=== PATIENT | male | born 1945 | race Caucasian/White ===

== ENCOUNTER → 2024-06-06 | Outpatient (CLI) | payer MEDICARE, OTHER, SELFPAY ==
[2024-06-06 12:41] LABS: Absolute Lymphocyte Count 1.31 X10^3/uL (0.83-4.51); Absolute Neutrophil Count 6.4 X10^3/uL (2.0-7.7); Basophil# 0.06 X10^3/uL; Basophil% 0.7 % (0-1); Eosinophil# 0.24 X10^3/uL; Eosinophils% 2.7 % (0-5); Erythrocyte Sedimentation Rate 12 mm/hr (0-20); Hematocrit 44.1 % (40-54); Hemoglobin 14.6 g/dL (13.0-16.5); Lymphocyte # 1.31 X10^3/ul (0.83-4.51); Lymphocyte % 14.9 % (19-41); Mean Corp Hgb Conc 33.1 g/dL (32-36); Mean Corpuscular Hgb 32.4 pg (27.0-32.0); Mean Platelet Vol. 11.7 fl (6.2-12.0); Monocyte# 0.75 X10^3/uL; Monocyte% 8.5 % (0-10); NRBC Flagged by Analyzer 0 % (0-5); Neutrophil # 6.39 X10^3/uL (2.7-7.7); Neutrophil % 72.5 % (47-70); Platelet Count 239 K/mm3 (150-450); RBC Distribution Width CV 13.4 % (11.6-14.6); RBC Distribution Width SD 48.7 fl (35.1-43.9); White Blood Count 8.8 K/mm3 (4.4-11.0)
[2024-06-06 13:08] LABS: AST(SGOT) 16 U/L (15-37); Alanine Aminotransfer ALT/SGPT 15 U/L (16-61); Albumin, Serum 3.5 g/dL (3.2-5.0); Alkaline Phosphatase 90 U/L (45-117); Anion Gap 8 (5-15); BUN 22 mg/dL (7-18); BUN/Creat Ratio 22.5 RATIO (10-20); CRP < 2.90 mg/L (0.0-3.0); Chloride 108 mmol/L (98-107); Creatinine, Serum 0.98 mg/dL (0.70-1.30); EST Glomerular Filtration Rate 78 mL/min (>60); Est Glom Filt Rate - Afr Amer 95 mL/min (>60); Globulin 3.6 g/dL (2.2-4.2); Glucose 111 mg/dL (74-106); Potassium 4.4 mmol/L (3.5-5.1); Protein, Total 7.1 g/dL (6.4-8.2); Rheumatoid Factor < 10.0 IU/mL (<15); Sodium Level 138 mmol/L (136-145)
[2024-06-06 13:39] LABS: Hepatitis B Surface Antibody Reactive; Hepatitis B Surface Antigen Non-Reactive (Nonreactive); Hepatitis C Antibody Non-Reactive (Nonreactive)
[2024-06-07 12:10] LABS: ANTINUCLEAR ANTIBODIES DIRECT Negative (Negative)
[2024-06-07 14:10] LABS: CCP IgG Antibodies 6 units (0-19)
== END | disposition home or self-care (01) ==
LOC: MTLAB 09:59
PROVIDERS: Referring Provider Internal Medicine Rheumatology; Visit Provider Internal Medicine Rheumatology
DX: M06.4 Inflammatory polyarthropathy (principal); Z79.899 Other long term (current) drug therapy
CPT/HCPCS: 36415; 80053; 85025; 85652; 86038; 86140; 86200; 86431; 86706; 86803; 87340

== ENCOUNTER → 2024-08-24 | Outpatient (CLI) | payer MEDICARE, OTHER, SELFPAY ==
[2024-08-24 17:41] LABS: Absolute Lymphocyte Count 1.59 X10^3/uL (0.83-4.51); Absolute Neutrophil Count 6.2 X10^3/uL (2.0-7.7); Basophil# 0.05 X10^3/uL; Basophil% 0.6 % (0-1); Eosinophil# 0.15 X10^3/uL; Eosinophils% 1.7 % (0-5); Hematocrit 40.9 % (40-54); Hemoglobin 13.3 g/dL (13.0-16.5); Lymphocyte # 1.59 X10^3/ul (0.83-4.51); Lymphocyte % 18.3 % (19-41); Mean Corp Hgb Conc 32.5 g/dL (32-36); Mean Corpuscular Hgb 32.2 pg (27.0-32.0); Monocyte# 0.71 X10^3/uL; Monocyte% 8.2 % (0-10); NRBC Flagged by Analyzer 0 % (0-5); Neutrophil # 6.16 X10^3/uL (2.7-7.7); Neutrophil % 70.7 % (47-70); Platelet Count 243 K/mm3 (150-450); RBC Distribution Width CV 14.1 % (11.6-14.6); RBC Distribution Width SD 51.4 fl (35.1-43.9); Red Blood Count 4.13 M/mm3 (4.6-6.2); White Blood Count 8.7 K/mm3 (4.4-11.0)
[2024-08-24 18:23] LABS: AST(SGOT) 20 U/L (15-37); Alanine Aminotransfer ALT/SGPT 18 U/L (16-61); Albumin, Serum 3.6 g/dL (3.2-5.0); Alkaline Phosphatase 89 U/L (45-117); Anion Gap 6 (5-15); BUN 26 mg/dL (7-18); BUN/Creat Ratio 25.7 RATIO (10-20); Calcium,Total 8.5 mg/dL (8.5-10.1); Chloride 107 mmol/L (98-107); Creatinine, Serum 1.01 mg/dL (0.70-1.30); EST Glomerular Filtration Rate 75 mL/min (>60); Est Glom Filt Rate - Afr Amer 91 mL/min (>60); Globulin 3.5 g/dL (2.2-4.2); Glucose 110 mg/dL (74-106); Potassium 4.2 mmol/L (3.5-5.1); Protein, Total 7.1 g/dL (6.4-8.2); Sodium Level 139 mmol/L (136-145)
== END | disposition home or self-care (01) ==
LOC: MTLAB 14:47
PROVIDERS: Referring Provider Internal Medicine Rheumatology; Visit Provider Internal Medicine Rheumatology
DX: M06.4 Inflammatory polyarthropathy (principal); Z79.899 Other long term (current) drug therapy
CPT/HCPCS: 36415; 80053; 85025

== ENCOUNTER → 2024-11-07 | Outpatient (CLI) | payer MEDICARE, OTHER, SELFPAY ==
[2024-11-07 11:04] LABS: Absolute Lymphocyte Count 1.41 X10^3/uL (0.83-4.51); Absolute Neutrophil Count 4.5 X10^3/uL (2.0-7.7); Basophil# 0.04 X10^3/uL; Basophil% 0.6 % (0-1); Eosinophil# 0.27 X10^3/uL; Eosinophils% 3.9 % (0-5); Hematocrit 41.4 % (40-54); Hemoglobin 13.8 g/dL (13.0-16.5); Lymphocyte # 1.41 X10^3/ul (0.83-4.51); Lymphocyte % 20.3 % (19-41); Mean Corp Hgb Conc 33.3 g/dL (32-36); Mean Corpuscular Hgb 33.7 pg (27.0-32.0); Mean Platelet Vol. 11.7 fl (6.2-12.0); Monocyte# 0.68 X10^3/uL; Monocyte% 9.8 % (0-10); NRBC Flagged by Analyzer 0 % (0-5); Neutrophil # 4.51 X10^3/uL (2.7-7.7); Platelet Count 219 K/mm3 (150-450); RBC Distribution Width CV 13.7 % (11.6-14.6); RBC Distribution Width SD 50.6 fl (35.1-43.9); White Blood Count 6.9 K/mm3 (4.4-11.0)
[2024-11-07 11:31] LABS: ALB/GLOB Ratio 1.5 RATIO (0.9-2.4); AST(SGOT) 26 U/L (<=37); Alanine Aminotransfer ALT/SGPT 10 U/L (<=46); Albumin, Serum 3.9 g/dL (3.4-4.8); Alkaline Phosphatase 86 U/L (40-129); Anion Gap 11 (5-15); BUN 22 mg/dL (4-19); BUN/Creat Ratio 20.9 RATIO (10-20); Calcium,Total 8.7 mg/dL (7.6-11.0); Carbon Dioxide 20.6 mmol/L (21.0-32.0); Chloride 108 mmol/L (98-108); Creatinine, Serum 1.07 mg/dL (0.70-1.20); EST Glomerular Filtration Rate 70 (>60); Globulin 2.6 g/dL (2.2-4.2); Glucose 104 mg/dL (70-99); Potassium 4.3 mmol/L (3.3-5.1); Protein, Total 6.5 g/dL (5.9-8.4); Sodium Level 140 mmol/L (133-145); Total Bilirubin 0.42 mg/dL (0.00-1.30)
== END | disposition home or self-care (01) ==
LOC: MTLAB 09:25
PROVIDERS: Referring Provider Internal Medicine Rheumatology; Visit Provider Internal Medicine Rheumatology
DX: M06.4 Inflammatory polyarthropathy (principal); Z79.899 Other long term (current) drug therapy
CPT/HCPCS: 36415; 80053; 85025

== ENCOUNTER → 2025-01-13 | Outpatient (CLI) | payer MEDICARE, OTHER, SELFPAY ==
--- OUTSIDE RECORDS SUMMARY | 2025-01-13 08:57 | XMS RPT_ITS | CCD ---
Author Organization [facility] Care Team Providers Care Routing Machine Operator Name Role Phone WILFREDO HANSON, ANETA Primary Care Physician [phone] Unavailable Primary Care Provider Pily CRANE APRN-BENJAMIN HERNANDEZ Attending Cathy VILLALOBOS MD, [facility] Primary Care Fran Sheehan MD, DR PRESTON Attending Fran Curran MD, [facility] Primary Care Fran Sheehan MD, DR PRESTON Attending Fran Curran MD, [facility] Primary Care Fran Curran MD, ANETA Villavicencio Attending Fran Curran MD, [facility] Primary Care Fran [facility], [facility] Primary Care Physician [phone] ITALO HANSON, DR PRESTON Attending Fran Curran MD, [facility] Primary Care Fran Curran MD, [facility] Care Fran Sheehan MD, DR PRESTON Attending Fran Curran MD, Dr. Quan Primary Care Provider Dr. Jocelyn Beltre MD Attending Provider Dr. Jocelyn Beltre MD Referring Provider Jocelyn Beltre Attending Unavailable Jocelyn Beltre Referring Unavailable Aneta Villalobos Primary Care Unavailable Jocelyn Beltre Attending Unavailable Jocelyn Beltre Referring [facility]available [facility] Unavailable Jocelyn Beltre Attending Unavailable Jocelyn Beltre Referring Unavailable [facility]fredo [facility] Colleen VILLALOBOS MD, ANETA Villavicencio Attending Fran Curran MD, [facility] Care Fran leal Allergies Allergy Classification Reported Allergen(s) Allergy Type Date of Onset Reaction(s) Facility (8 sources) Droperidol; Translations: [droperidol] Drug Allergy [facility] Work Phone: (8 sources) Droperidol / fentaNYL; Translations: [droperidol-fent anyl] Drug Allergy irregular heart beat [facility] Work Phone: (8 sources) fentaNYL; Translations: [fentanyl] Drug Allergy [facility] Work Phone: Comment on above: pt does not know wha t his reaction was (6 sources) Isosorbide; Translations: [isosorbide] Drug Allergy unbearable headache [facility] Work Phone: Medications Current Medications Medication Drug Class(es) Dates Sig (Normalized) Sig (Original) aspirin 81 mg delayed release oral tablet (4 sources) Platelet Aggregation Inhibitor, Nonsteroidal Anti-inflammatory Drug Start: 01-10-2022 aspirin 81 mg oral delayed release tablet Dose : 81 mg = 1 tab(s), Oral, qDay, # 30 tab(s), 6 Refill(s), Pharmacy: [facility], 188, cm, 01/10/22 10:51:00 EDT, Height Start Date: 01/10/22 Status: Ordered atorvastatin 10 mg oral tablet (5 sources) HMG-CoA Reductase Inhibitor Start: 12-18-2023 take 1 tablet by mouth once daily atorvastatin 10 mg oral tablet 1 tab(s), Oral, qDay, # 90 tab(s), 0 Refill(s), Pharmacy: [facility], 188, cm, 12/14/23 9:21:00 EDT, Height, kg, 12/14/23 9:21:00 EDT, Dosing Weight Start Date: 12/18/23 Status: Ordered Start: 01-20-2022 atorvastatin 4 0 mg oral tablet Dose : 40 mg = 1 tab(s), Oral, qDay, # 30 tab(s), 6 Refill(s), Pharmacy: [facility], 188, cm, 01/20/22 8:21:00 EDT, Height Start Date: 01/20/22 Status: Ordered clopidogrel 75 mg oral tablet (1 source) [id number] Platelet Inhibitor Start: 05-21-2024 Plavix 75 mg oral tablet Dose : 75 mg = 1 tab(s), Oral, qDay, # 30 tab(s), 6 Refill(s), Pharmacy: [facility], 188, cm, 12/22/23 9:33:00 EDT, Height, kg, 12/22/23 9:33:00 EDT, Dosing Weight Start Date: 12/22/23 Status: Ordered 24 hr isosorbide mononitrate 30 mg extended release oral tablet (1 source) Nitrate Vasodilator Start: 01-10-2022 isosorbide mononitrate 30 mg oral tablet, extended release Dose : 30 mg = 1 tab(s), Oral, qAM, # 30 tab(s), 6 Refill(s), Pharmacy: [place] [id number], 188, cm, 01/10/22 10:51:00 EDT, Height Start Date: 01/10/22 Status: Ordered losartan potassium 25 mg oral tablet (1 source) Angiotensin 2 Receptor Dona Start: 12-22-2023 losartan 25 mg oral tablet Dose : 25 mg = 1 tab(s), Oral, qDay, # 30 tab(s), 6 Refill(s), Pharmacy: [facility], 188, cm, 12/22/23 9:33:00 EDT, Height, kg, 12/22/23 9:33:00 EDT, Dosing Weight Start Date: 12/22/23 Status: Ordered 24 hr metoprolol succinate 25 mg extended release oral tablet (3 sources) beta-Adrenergic Dona Start: 02-18-2022 metoprolol succinate 25 mg oral TABLET extended release Dose : 12.5 mg = 0.5 tab(s), Oral, qDay, Do not crush or chew (controlled release), # 15 tab(s), 6 Refill(s), Pharmacy: [facility], 188, cm, 02/18/22 10:15:00 EDT, Height, kg, 02/18/22 10:15:00 EDT, Dosing Weight Start Date: 02/18/22 Status: Ordered Start: 01-10-2022 metoprolol suc cinate 25 mg oral TABLET extended release Dose : 25 mg = 1 tab(s), Oral, qDay, Do not crush or chew (controlled release), # 30 tab(s), 0 Refill(s), Pharmacy: [facility], 188, cm, 01/10/22 10:51:00 EDT, Height Start Date: 01/10/22 Status: Ordered nitroglycerin 0.4 mg sublingual tablet (7 sources) Nitrate Vasodilator Start: 01-10-2022 nitroglyce rin 0.4 mg sublingual tablet 0.4 mg Dose = 1 tab(s), Sublingual, q5min, PRN for chest pain q 5min X3, # 25 tab(s), 11 Refill(s), Pharmacy: [facility], 188, cm, 01/10/22 10:51:00 EDT, Height Start Date: 01/10/22 Status: Ordered pantoprazole 40 mg delayed release oral tablet (7 sources) Proton Pump Inhibitor Start: 12-22-2023 pantoprazole 40 mg oral enteric coated tablet Dose : 40 mg = 1 tab(s), Oral, qDay, # 30 tab(s), 6 Refill(s), Pharmacy: [facility], 188, cm, 12/22/23 9:33:00 EDT, Height, kg, 12/22/23 9:33:00 EDT, Dosing Weight Start Date: 12/22/23 Status: Ordered Start: 01-10-2022 Protonix 20 mg oral enteric coated tablet Dose : 20 mg = 1 tab(s), Oral, qDay, # 30 tab(s), 6 Refill(s), Pharmacy: [facility], 188, cm, 01/10/22 10:51:00 EDT, Height Start Date: 01/10/22 Status: Ordered predniSONE 2.5 mg oral table t (3 sources) Start: 05-13-2024 predniSONE 2.5 mg oral tablet Dose : 7.5 mg = 3 tab(s), Oral, qDay, Take with food, # 90 tab(s), 0 Refill(s), Pharmacy: [facility], 188, cm, 02/24/24 13:52:00 EDT, Height, kg, 02/24/24 13:52:00 EDT, Dosing Weight Start Date: 05/13/24 Status: Ordered Start: 12-22-2023 predniSONE 2.5 mg oral tablet Dose : 2.5 mg = 1 tab(s), Oral, qDay, # 30 tab(s), 0 Refill(s) Start Date: 12/22/23 Status: Ordered sildenafil 50 mg oral tablet (3 sources) Phosphodiesterase 5 Inhibitor Start: 06-20-2022 sildenafil 50 mg oral tablet Dose : 50 mg = 1 tab(s), Oral, qDay, 1 hour before sexual activity, # 5 tab(s), 5 Refill(s) Start Date: 06/20/22 Status: Ordered Problems Active Problems Problem Classification Problem Date Documented Date Episodic/Chronic Aortic; peripheral; and visceral artery aneurysms (5 sources) Aortic aneurysm; Translations: [Aneurysm of ascending aorta] 02-18-2022 Chronic Cardiac dysrhythmias (7 sources) Ventricular premature beats 01-10-2022 Chronic Coronary atherosclerosis and other heart disease (4 sources) Coronary arteriosclerosis 02-18-2022 Chronic Deficiency and other anemia (8 sources) Anemia of chronic disease 02-15-2019 Chronic Disorders of lipid metabolism (11 sources) Mixed hyperlipidemia; Translations: [Dyslipidemia] Onset: 11-29-2024 12-24-2021 Chronic Diverticulosis and diverticulitis (8 sources) Diverticulosis of sigmoid colon 02-15-2019 Chronic Gastritis and duodenitis (3 sources) Gastritis 06-20-2022 Episodic Hyperplasia of prostate (8 sources) Benign prostatic hyperplasia 02-15-2019 Chronic Joint disorders and dislocations; trauma-related (8 sources) Derangement of knee 02-15-2019 Chronic Malaise and fatigue (5 sources) Fatigue 12-24-2021 Episodic Other congenital anomalies (1 source) Marfan's syndrome; Translations: [Marfan's syndrome with aortic dilation] 02-03-2024 Chronic Other connective tissue disease (16 sources) Polymyalgia rheumatica 01-11-2019 Chronic Other lower respiratory disease (5 sources) Dyspnea 12-24-2021 Episodic Other male genital disorders (8 sources) Impotence 12-24-2021 Chronic Other nutritional; endocrine; and metabolic disorders (6 sources) Body mass index 30+ - obesity 12-24-2021 Chronic Other screening for suspected conditions (not mental disorders or infectious disease) (7 sources) Cardiovascular stress test abnormal 01-10-2022 Episodic Residual codes; unclassified (4 sources) Family history of Marfan syndrome; Translations: [Family history of other congenital malformations, deformations and chromosomal abnormalities] 12-22-2023 Episodic Rheumatoid arthritis and related disease (1 source) Inflammatory polyarthropathy; Translations: [Inflammatory polyarthropathy] Onset: 11-10-2024 Chronic Unclassified (8 sources) Patient encounter status 12-24-2021 Unclassified (1 source) Aneurysm of the ascending aorta, without rupture; Translations: [Aneurysm of the ascending aorta, without rupture] Onset: 06-07-2024 Past or Other Problems Problem Classification Problem Date Documented Da te Episodic/Chronic Unclassified (1 source) Aneurysm of the ascending aorta, without rupture; Translations: [Aneurysm of the ascending aorta, without rupture] Onset: 06-07-2024 Results Test Name Value Interpretation Reference Range Facility LIPIDon 11-29-2024 Cholesterol [Mass/Vol] 111 mg/dL Normal 50-199 [facility] Comment on above: Result Comment: Chol esterol Reference Interval: Less than 200 Desirable 200-239 Borderline high risk 240 and above High risk Performed By: #### L IPID #### [address] [address] Cholesterol in HDL [Mass/Vol] 43 mg/dL Normal 40-59 [facility] Comment on above: Performed By: #### L IPID #### [address] [address] Cholesterol in LDL [Mass/Vol] 54 mg/dL Normal 0-129 [facility] Comment on above: Performed By: #### L IPID #### [address] [address] Triglyceride [Mass/Vol] 72 mg/dL Normal 3-149 [facility] Comment on above: Performed By: #### L IPID #### [address] [address] Absolute neutrophil countOrd ered By: Jocelyn Beltre on 11-07-2024 Neutrophils (Bld) [#/Vol] 4.5 10*3/uL 2.0-7.7 [facility] Anion gap in Serum or Plasma Ordered By: Jocelyn Beltre on 11-07-2024 Anion gap [Moles/Vol] 11 mmol/L 5-15 [facility] BUN/creatinine ratioOrdered By: Jocelyn Desaiki on 11-07-2024 Urea nitrogen/Creatinine [Mass ratio] 20.9 mg/mg High 10-20 [facility] Basophil percentageOrdered B y: Jocelyn Beltre on 11-07-2024 Basophils/100 WBC (Bld) 0.6 % 0-[address] [facility] Bilirubin, totalOrdered By: Jocelyn Alexsander on 11-07-2024 Bilirubin [Mass/Vol] 0.42 mg/dL 0.00-1.30 [facility] CBC W/Diff, Automatedon Absolute Lymph 1.41 X10 3/uL Normal 0.83-4.51 [facility] Comment on above: Performed By: #### L [id number], L100.0100 #### [facility] [address] [place], [address] Absolute Neut 4.5 X10 3/uL Normal 2.0-7.7 [facility] Comment on above: Performed By: #### L [id number], L100.0100 #### [facility] [address] [place], [address] Basophils/100 WBC (Bld) 0.6 % Normal 0-[address] [facility] Comment on above: Performed By: #### L [id number], L100.0100 #### [facility] [address] [place], [address] Eosinophils/100 WBC (Bld) 3.9 % Normal 0-5 [facility] Comment on above: Performed By: #### L [id number], L100.0100 #### [facility] [address] [place], [address] Erythrocyte distribution width (RBC) [Ratio] 13.7 % Normal 11.6-14.6 [facility] Comment on above: Performed By: #### L [id number], L100.0100 #### [facility] [address] [place], [address] Hematocrit (Bld) [Volume fraction] 41.4 % Normal 40-54 [facility] Comment on above: Performed By: #### L [id number], L100.0100 #### [facility] [address] [place], [address] Hemoglobin (Bld) [Mass/Vol] 13.8 g/dL Normal 13.0-16.5 [facility] Comment on above: Performed By: #### L [id number], L100.0100 #### [facility] [address] [place], [address] IG% 0.400 Normal 0.0-0.9 [facility] Comment on above: Result Comment: IG% - Immature Granulocytes (promyelocytes, myelocytes and metamyelocytes) > 1% indicates that a LEFT SHIFT is Present. Performed By: #### L [id number], L100.0100 #### [facility] [address] [place], [address] Lymphocytes/100 WBC (Bld) 20.3 % Normal 19-41 [facility] Comment on above: Performed By: #### L [id number], L100.0100 #### [facility] [address] [place], [address] MCH (RBC) [Entitic mass] 33.7 pg High 27.0-32.0 [facility] Comment on above: Performed By: #### L [id number], L100.0100 #### [facility] [address] [place], [address] MCHC (RBC) [Mass/Vol] 33.3 g/dL Normal 32-36 [facility] Comment on above: Performed By: #### L [id number], L100.0100 #### [facility] [address] [place], [address] MCV (RBC) [Entitic vol] 101.0 fL High 80-[address] [facility] Comment on above: Performed By: #### L [id number], L100.0100 #### [facility] [address] [place], [address] Monocytes/100 WBC (Bld) 9.8 % Normal 0-10 [facility] Comment on above: Performed By: #### L [id number], L100.0100 #### [facility] [address] [place], [address] Neutrophils/100 WBC (Bld) 65.0 % Normal 47-70 [facility] Comment on above: Performed By: #### L [id number], L100.0100 #### [facility] [address] [place], [address] Nucleated RBC (Bld) [#/Vol] 0 10*3/uL Normal 0-5 [facility] Comment on above: Performed By: #### L [id number], L100.0100 #### [facility] [address] [place], [address] Platelet mean volume (Bld) [Entitic vol] 11.7 fL Normal 6.2-12.0 [facility] Comment on above: Performed By: #### L [id number], L100.0100 #### [facility] [address] [place], [address] Platelets (Bld) [#/Vol] 219 10*3/uL Normal 150-450 [facility] Comment on above: Performed By: #### L [id number], L100.0100 #### [facility] [address] [place], [address] RBC (Bld) [#/Vol] 4.10 10*6/uL Low 4.6-6.2 [facility] Comment on above: Performed By: #### L [id number], L100.0100 #### [facility] [address] [place], [address] RDW SD 50.6 fl High 35.1-43.9 [facility] Comment on above: Performed By: #### L [id number], L100.0100 #### [facility] [address] [place], [address] WBC (Bld) [#/Vol] 6.9 10*3/uL Normal 4.4-11.0 [facility] Comment on above: Performed By: #### L [id number], L100.0100 #### [facility] [address] [place], [address] Carbon dioxide, total [Moles /volume] in Central venous bloodOrdered By: Jocelyn Beltre on 11-07-2024 CO2 [Moles/Vol] 20.6 mmol/L Low 21.0-32.0 [facility] Chloride assayOrdered By: Aakash Beltre on 11-07-2024 Chloride [Moles/Vol] 108 mmol/L 98-108 [facility] Comprehensive Metabolic Prof ilon 11-07-2024 Albumin [Mass/Vol] 3.9 g/dL Normal 3.4-4.8 [facility] Comment on above: Performed By: #### L [id number], L100.0100 #### [facility] [address] [place], [address] Albumin/Globulin [Mass ratio] 1.5 {ratio} Normal 0.9-2.4 [facility] Comment on above: Performed By: #### L 500.4050, L100.0100 #### [facility] [address] [place], [address] ALK PHOS 86 U/L Normal 40-129 [facility] Comment on above: Performed By: #### L 500.4050, L100.0100 #### [facility] [address] [place], [address] ALT [Catalytic activity/Vol] 10 U/L Normal <=46 [facility] Comment on above: Performed By: #### L [id number], L100.0100 #### [facility] [address] [place], [address] AST [Catalytic activity/Vol] 26 U/L Normal <=37 [facility] Comment on above: Performed By: #### L [id number], L100.0100 #### [facility] [address] [place], [address] Bilirubin [Mass/Vol] 0.42 mg/dL Normal 0.00-1.30 [facility] Comment on above: Performed By: #### L 500.4050, L100.0100 #### [facility] [address] [place], [address] BUN/CRE 20.9 RATIO High 10-20 [facility] Comment on above: Performed By: #### L 500.4050, L100.0100 #### [facility] [address] [place], [address] Calcium [Mass/Vol] 8.7 mg/dL Normal 7.6-11.0 [facility] Comment on above: Performed By: #### L [id number], L100.0100 #### [facility] [address] [place], [address] Chloride [Moles/Vol] 108 mmol/L Normal 98-108 [facility] Comment on above: Performed By: #### L 500.4050, L100.0100 #### [facility] [address] [place], [address] CO2 [Moles/Vol] 20.6 mmol/L Low 21.0-32.0 [facility] Comment on above: Performed By: #### L 500.4050, L100.0100 #### [facility] [address] [place], [address] Creatinine [Mass/Vol] 1.07 mg/dL Normal 0.70-1.20 [facility] Comment on above: Performed By: #### L 500.4050, L100.0100 #### [facility] [address] [place], [address] GAP 11 Normal 5-15 [facility] Comment on above: Performed By: #### L 500.4050, L100.0100 #### [facility] [address] [place], [address] GFR/1.73 sq M.predicted among non-blacks MDRD (S/P/Bld) [Vol rate/Area] 70 mL/min/{1.73_m2} Normal >60 [facility] Comment on above: Result Comment: mL/m in/1.73m2 CKD-EPI Creatinine Equation (2020) Performed By: #### L 500.4050, L100.0100 #### [facility] [address] [place], [address] Globulin (S) [Mass/Vol] 2.6 g/dL Normal 2.2-4.2 [facility] Comment on above: Performed By: #### L [id number], [id number] #### [facility] [address] [place], [address] Glucose [Mass/Vol] 104 mg/dL High 70-99 [facility] Comment on above: Performed By: #### L 500.4050, L100.0100 #### [facility] [address] [place], [address] Potassium [Moles/Vol] 4.3 mmol/L Normal 3.3-5.1 [facility] Comment on above: Performed By: #### L [id number], L100.0100 #### [facility] [address] [place], [address] Sodium [Moles/Vol] 140 mmol/L Normal 133-145 [facility] Comment on above: Performed By: #### L [id number], L100.0100 #### [facility] [address] [place], [address] T PROT 6.5 g/dL Normal 5.9-8.4 [facility] Comment on above: Performed By: #### L 500.4050, L100.0100 #### [facility] [address] [place], [address] Urea nitrogen [Mass/Vol] 22 mg/dL High 4-19 [facility] Comment on above: Performed By: #### L 500.4050, L100.0100 #### [facility] [address] [place], [address] Eosinophil percentageOrdered By: Jocelyn Beltre on 11-07-2024 Eosinophils/100 WBC (Bld) 3.9 % 0-5 [facility] Erythrocyte distribution wid th (RBC) [Ratio]Ordered By: Jocelyn Beltre on 11-07-2024 Erythrocyte distribution width (RBC) [Entitic vol] 50.6 fL High 35.1-43.9 [facility] Erythrocyte distribution wid th ratioOrdered By: Jocelyn Beltre on 11-07-2024 Erythrocyte distribution width (RBC) [Ratio] 13.7 % 11.6-14.6 [facility] GFR/1.73 sq M.predicted bharati g non-blacks MDRD (S/P/Bld) [Vol rate/Area]Ordered By: Jocelyn Beltre on 11-07-2024 Estimated GFR (MDRD) Non-Af Amer 70 >60 [facility] Comment on above: mL/min/1.73m2 CKD-EP I Creatinine Equation (2020) Hematocrit Auto (Bld) [Volum e fraction]Ordered By: Jocelyn Beltre on 11-07-2024 Hematocrit (Bld) [Volume fraction] 41.4 % 40-54 [facility] Hemoglobin measurementOrdere d By: Jocelyn Beltre on 11-07-2024 Hemoglobin (Bld) [Mass/Vol] 13.8 g/dL 13.0-16.5 [facility] Immature granulocytes/100 WB C Auto (Bld)Ordered By: Jocelyn Beltre on 11-07-2024 Immature granulocytes/100 WBC (Bld) 0.400 % 0.0-0.9 [facility] Comment on above: IG% - Immature Granu locytes (promyelocytes, myelocytes and metamyelocytes) > 1% indicates that a LEFT SHIFT is Present. Laboratory - Chemistry and C hemistry - challengeOrdered By: Jocelyn Beltre on 11-07-2024 AST [Catalytic activity/Vol] 26 U/L <38 [facility] Lymphocytes Auto (Unsp spec) [#/Vol]Ordered By: Jocelyn Beltre on 11-07-2024 Lymphocytes (Bld) [#/Vol] 1.41 10*3/uL 0.83-4.51 [facility] Lymphocytes/100 WBC Auto (Un sp spec)Ordered By: Jocelyn Beltre on 11-07-2024 Lymphocytes/100 WBC (Bld) 20.3 % 19-41 [facility] MCV (mean corpuscular volume ) determinationOrdered By: Jocelyn Beltre on 11-07-2024 MCV (RBC) [Entitic vol] 101.0 fL High 80-[address] [facility] Mean corpuscular hemoglobin (MCH) determinationOrdered By: Jocelyn Beltre on 11-07-2024 MCH (RBC) [Entitic mass] 33.7 pg High 27.0-32.0 [facility] Mean corpuscular hemoglobin concentration (MCHC) determinationOrdered By: Jocelyn Beltre on 11-07-2024 MCHC (RBC) [Mass/Vol] 33.3 g/dL 32-36 [facility] Mean platelet volume determi nationOrdered By: Jocelyn Beltre on 11-07-2024 Platelet mean volume (Bld) [Entitic vol] 11.7 fL 6.2-12.0 [facility] Monocyte percentageOrdered B y: Jocelyn Beltre on 11-07-2024 Monocytes/100 WBC (Bld) 9.8 % 0-10 [facility] Neutrophil percentageOrdered By: Jocelyn Beltre on 11-07-2024 Neutrophils/100 WBC (Bld) 65.0 % 47-70 [facility] Nucleated red blood cell per centageOrdered By: Jocelyn Beltre on 11-07-2024 Nucleated RBC/100 WBC (Bld) [Ratio] 0 % 0-5 [facility] Platelet countOrdered By: Aakash Beltre on 11-07-2024 Platelets (Bld) [#/Vol] 219 10*3/uL 150-450 [facility] Potassium (Unsp spec) [Mass/ Vol]Ordered By: Jocelyn Beltre on 11-07-2024 Potassium [Moles/Vol] 4.3 mmol/L 3.3-5.1 [facility] RBC Auto (Bld) [#/Vol]Ordere d By: Jocelyn Beltre on 11-07-2024 RBC (Bld) [#/Vol] 4.10 10*6/uL Low 4.6-6.2 [facility] Serum creatinine measurement (mass/volume)Ordered By: Jocelyn Beltre on 11-07-2024 Creatinine [Mass/Vol] 1.07 mg/dL 0.70-1.20 [facility] Serum globulin measurementOr dered By: Jocelyn Beltre on 11-07-2024 Globulin (S) [Mass/Vol] 2.6 g/dL 2.2-4.2 [facility] Serum glucose measurement (m ass/volume)Ordered By: Jocelyn Beltre on 11-07-2024 Glucose [Mass/Vol] 104 mg/dL High 70-99 [facility] Serum or plasma alanine kirk otransferase (ALT) measurementOrdered By: Jocelyn Beltre on 11-07-2024 ALT [Catalytic activity/Vol] 10 U/L <47 [facility] Serum or plasma albumin honey urement (mass/volume)Ordered By: Jocelyn Beltre on 11-07-2024 Albumin [Mass/Vol] 3.9 g/dL 3.4-4.8 [facility] Serum or plasma albumin/glob ulin mass ratioOrdered By: Jocelyn Beltre on 11-07-2024 Albumin/Globulin [Mass ratio] 1.5 {ratio} 0.9-2.4 [facility] Serum or plasma alkaline shoaib sphatase measurementOrdered By: Jocelyn Beltre on 11-07-2024 ALP [Catalytic activity/Vol] 86 U/L 40-129 [facility] Serum or plasma calcium honey urement (mass/volume)Ordered By: Jocelyn Beltre on 11-07-2024 Calcium [Mass/Vol] 8.7 mg/dL 7.6-11.0 [facility] Serum or plasma urea nitroge n measurement (mass/volume)Ordered By: Jocelyn Beltre on 11-07-2024 Urea nitrogen [Mass/Vol] 22 mg/dL High 4-19 [facility] Sodium levelOrdered By: Dorothea Beltre on 11-07-2024 Sodium [Moles/Vol] 140 mmol/L 133-145 [facility] Total proteinOrdered By: Guillaume Beltre on 11-07-2024 Protein [Mass/Vol] 6.5 g/dL 5.9-8.4 [facility] White blood cell (WBC) count Ordered By: Jocelyn Beltre on 11-07-2024 WBC (Bld) [#/Vol] 6.9 10*3/uL 4.4-11.0 [facility] Absolute neutrophil countOrd ered By: Jocelyn Beltre on 08-24-2024 Neutrophils (Bld) [#/Vol] 6.2 10*3/uL 2.0-7.7 [facility] Albumin to globulin ratioOrd ered By: Jocelyn Beltre on 08-24-2024 Albumin/Globulin [Mass ratio] 1.0 {ratio} 0.9-2.4 [facility] Basophil percentageOrdered B y: Jocelyn Beltre on 08-24-2024 Basophils/100 WBC (Bld) 0.6 % 0-[address] [facility] Bilirubin, totalOrdered By: Jocelyn Beltre on 08-24-2024 Bilirubin [Mass/Vol] 0.60 mg/dL 0.20-1.00 [facility] Comment on above: For patients on eltr ombopag therapy, use of Dimension [place] TBIL is not recommended. Blood urea nitrogen (BUN)/cr eatinine ratioOrdered By: Jocelyn Beltre on 08-24-2024 Urea nitrogen/Creatinine [Mass ratio] 25.7 mg/mg High 10-20 [facility] CBC W/Diff, Automatedon 08-04 Absolute Lymph 1.59 X10 3/uL Normal 0.83-4.51 [facility] Comment on above: Performed By: #### L 500.4050, L100.0100 #### [facility] [address] [place], [address] Absolute Neut 6.2 X10 3/uL Normal 2.0-7.7 [facility] Comment on above: Performed By: #### L 500.4050, L100.0100 #### [facility] [address] [place], [address] Basophils/100 WBC (Bld) 0.6 % Normal 0-[address] [facility] Comment on above: Performed By: #### L 500.4050, L100.0100 #### [facility] [address] [place], [address] Eosinophils/100 WBC (Bld) 1.7 % Normal 0-5 [facility] Comment on above: Performed By: #### L 500.4050, L100.0100 #### [facility] [address] [place], [address] Erythrocyte distribution width (RBC) [Ratio] 14.1 % Normal 11.6-14.6 [facility] Comment on above: Performed By: #### L 500.4050, L100.0100 #### [facility] [address] [place], [address] Hematocrit (Bld) [Volume fraction] 40.9 % Normal 40-54 [facility] Comment on above: Performed By: #### L 500.4050, L100.0100 #### [facility] [address] [place], [address] Hemoglobin (Bld) [Mass/Vol] 13.3 g/dL Normal 13.0-16.5 [facility] Comment on above: Performed By: #### L 500.4050, L100.0100 #### [facility] [address] [place], [address] IG% 0.500 Normal 0.0-0.9 [facility] Comment on above: Result Comment: IG% - Immature Granulocytes (promyelocytes, myelocytes and metamyelocytes) > 1% indicates that a LEFT SHIFT is Present. Performed By: #### L 500.4050, L100.0100 #### [facility] [address] [place], [address] Lymphocytes/100 WBC (Bld) 18.3 % Low 19-41 [facility] Comment on above: Performed By: #### L 500.4050, L100.0100 #### [facility] [address] [place], [address] MCH (RBC) [Entitic mass] 32.2 pg High 27.0-32.0 [facility] Comment on above: Performed By: #### L 500.4050, L100.0100 #### [facility] [address] [place], [address] MCHC (RBC) [Mass/Vol] 32.5 g/dL Normal 32-36 [facility] Comment on above: Performed By: #### L 500.4050, L100.0100 #### [facility] [address] [place], [address] MCV (RBC) [Entitic vol] 99.0 fL High 80-[address] [facility] Comment on above: Performed By: #### L 500.4050, L100.0100 #### [facility] [address] [place], [address] Monocytes/100 WBC (Bld) 8.2 % Normal 0-[address] [facility] Comment on above: Performed By: #### L 500.4050, L100.0100 #### [facility] [address] [place], [address] Neutrophils/100 WBC (Bld) 70.7 % High 47-70 [facility] Comment on above: Performed By: #### L 500.4050, L100.0100 #### [facility] [address] [place], [address] Nucleated RBC (Bld) [#/Vol] 0 10*3/uL Normal 0-5 [facility] Comment on above: Performed By: #### L 500.4050, L100.0100 #### [facility] [address] [place], [address] Platelet mean volume (Bld) [Entitic vol] 11.0 fL Normal 6.2-12.0 [facility] Comment on above: Performed By: #### L 500.4050, L100.0100 #### [facility] [address] [place], [address] Platelets (Bld) [#/Vol] 243 10*3/uL Normal 150-450 [facility] Comment on above: Performed By: #### L 500.4050, L100.0100 #### [facility] [address] [place], [address] RBC (Bld) [#/Vol] 4.13 10*6/uL Low 4.6-6.2 [facility] Comment on above: Performed By: #### L 500.4050, L100.0100 #### [facility] [address] [place], [address] RDW SD 51.4 fl High 35.1-43.9 [facility] Comment on above: Performed By: #### L 500.4050, L100.0100 #### [facility] [address] [place], [address] WBC (Bld) [#/Vol] 8.7 10*3/uL Normal 4.4-11.0 [facility] Comment on above: Performed By: #### L 500.4050, L100.0100 #### [facility] [address] [place], [address] Carbon dioxide measurementOr dered By: Jocelyn Beltre on 08-24-2024 CO2 [Moles/Vol] 25.0 mmol/L 21.0-32.0 [facility] Chloride measurementOrdered By: Jocelyn Beltre on 08-24-2024 Chloride [Moles/Vol] 107 mmol/L 98-107 [facility] Comprehensive Metabolic Prof ilon 08-24-2024 Albumin [Mass/Vol] 3.6 g/dL Normal 3.2-5.0 [facility] Comment on above: Performed By: #### L 500.4050, L100.0100 #### [facility] [address] [place], [address] Albumin/Globulin [Mass ratio] 1.0 {ratio} Normal 0.9-2.4 [facility] Comment on above: Performed By: #### L 500.4050, L100.0100 #### [facility] [address] [place], [address] ALK P 89 U/L Normal 45-117 [facility] Comment on above: Performed By: #### L 500.4050, L100.0100 #### [facility] [address] [place], [address] ALT [Catalytic activity/Vol] 18 U/L Normal 16-61 [facility] Comment on above: Performed By: #### L 500.4050, L100.0100 #### [facility] [address] [place], [address] AST [Catalytic activity/Vol] 20 U/L Normal 15-37 [facility] Comment on above: Performed By: #### L 500.4050, L100.0100 #### [facility] [address] [place], [address] Bilirubin [Mass/Vol] 0.60 mg/dL Normal 0.20-1.00 [facility] Comment on above: Result Comment: For patients on eltrombopag therapy, use of Dimension [place] TBIL is not recommended. Performed By: #### L 500.4050, L100.0100 #### [facility] [address] [place], [address] BUN/CRE 25.7 RATIO High 10-20 [facility] Comment on above: Performed By: #### L 500.4050, L100.0100 #### [facility] [address] [place], [address] CA,Total 8.5 mg/dL Normal 8.5-10.1 [facility] Comment on above: Performed By: #### L 500.4050, L100.0100 #### [facility] [address] [place], [address] Chloride [Moles/Vol] 107 mmol/L Normal 98-107 [facility] Comment on above: Performed By: #### L 500.4050, L100.0100 #### [facility] [address] [place], [address] CO2 [Moles/Vol] 25.0 mmol/L Normal 21.0-32.0 [facility] Comment on above: Performed By: #### L 500.4050, L100.0100 #### [facility] [address] [place], [address] Creatinine [Mass/Vol] 1.01 mg/dL Normal 0.70-1.30 [facility] Comment on above: Result Comment: The validity of the calculated GFR GFRAA in patients over 70 years has not been determined. Clinical correlation is essential. Performed By: #### L 500.4050, L100.0100 #### [facility] [address] [place], [address] EST GFR - AA 91 mL/min Normal >60 [facility] Comment on above: Result Comment: Afri can Uzbek GFR Calc Performed By: #### L 500.4050, L100.0100 #### [facility] [address] [place], [address] GAP 6 Normal 5-15 [facility] Comment on above: Performed By: #### L 500.4050, L100.0100 #### [facility] [address] [place], [address] GFR/1.73 sq M.predicted among non-blacks MDRD (S/P/Bld) [Vol rate/Area] 75 mL/min/{1.73_m2} Normal >60 [facility] Comment on above: Result Comment: Non- GFR Calc Performed By: #### L 500.4050, L100.0100 #### [facility] [address] [place], [address] Globulin (S) [Mass/Vol] 3.5 g/dL Normal 2.2-4.2 [facility] Comment on above: Performed By: #### L 500.4050, L100.0100 #### [facility] [address] [place], [address] Glucose [Mass/Vol] 110 mg/dL High 74-106 [facility] Comment on above: Result Comment: Fast ing Glucose result from 100 to 125 mg/dL suggests IMPAIRED HOMEOSTASIS per A.D.A. criteria. Performed By: #### L 500.4050, L100.0100 #### [facility] [address] [place], [address] Potassium [Moles/Vol] 4.2 mmol/L Normal 3.5-5.1 [facility] Comment on above: Performed By: #### L 500.4050, L100.0100 #### [facility] [address] [place], [address] Sodium [Moles/Vol] 139 mmol/L Normal 136-145 [facility] Comment on above: Performed By: #### L 500.4050, L100.0100 #### [facility] [address] [place], [address] T PROT 7.1 g/dL Normal 6.4-8.2 [facility] Comment on above: Performed By: #### L 500.4050, L100.0100 #### [facility] [address] [place], [address] Urea nitrogen [Mass/Vol] 26 mg/dL High 7-18 [facility] Comment on above: Performed By: #### L 500.4050, L100.0100 #### [facility] [address] [place], [address] Eosinophil percentageOrdered By: Jocelyn Beltre on 08-24-2024 Eosinophils/100 WBC (Bld) 1.7 % 0-5 [facility] Erythrocyte distribution wid th (RBC) [Ratio]Ordered By: Jocelyn Beltre on 08-24-2024 Erythrocyte distribution width (RBC) [Entitic vol] 51.4 fL High 35.1-43.9 [facility] Erythrocyte distribution wid th ratioOrdered By: Jocelyn Beltre on 08-24-2024 Erythrocyte distribution width (RBC) [Ratio] 14.1 % 11.6-14.6 [facility] Estimated glomerular filtrat ion rate (GFR) AmericanOrdered By: Jocelyn Beltre on 08-24-2024 Estimated GFR (MDRD) Amer 91 mL/min >60 [facility] Comment on above: GFR Calc Glomerular filtration rate ( GFR) estimationOrdered By: Jocelyn Beltre on 08-24-2024 Estimated GFR (MDRD) Non-Af Amer 75 mL/min >60 [facility] Comment on above: Non- GFR Calc Glucose measurementOrdered B y: Jocelyn Beltre on 08-24-2024 Glucose [Mass/Vol] 110 mg/dL High 74-106 [facility] Comment on above: Fasting Glucose resu lt from 100 to 125 mg/dL suggests IMPAIRED HOMEOSTASIS per A.D.A. criteria. Hematocrit Auto (Bld) [Volum e fraction]Ordered By: Jocelyn Beltre on 08-24-2024 Hematocrit (Bld) [Volume fraction] 40.9 % 40-54 [facility] Hemoglobin measurementOrdere d By: Jocelyn Beltre on 08-24-2024 Hemoglobin (Bld) [Mass/Vol] 13.3 g/dL 13.0-16.5 [facility] Immature granulocytes/100 WB C Auto (Bld)Ordered By: Jocelyn Beltre on 08-24-2024 Immature granulocytes/100 WBC (Bld) 0.500 % 0.0-0.9 [facility] Comment on above: IG% - Immature Granu locytes (promyelocytes, myelocytes and metamyelocytes) > 1% indicates that a LEFT SHIFT is Present. Laboratory - Chemistry and C hemistry - challengeOrdered By: Jocelyn Beltre on 08-24-2024 AST [Catalytic activity/Vol] 20 U/L 15-37 [facility] Lymphocytes Auto (Unsp spec) [#/Vol]Ordered By: Jocelyn Beltre on 08-24-2024 Lymphocytes (Bld) [#/Vol] 1.59 10*3/uL 0.83-4.51 [facility] Lymphocytes/100 WBC Auto (Un sp spec)Ordered By: Jocelyn Beltre on 08-24-2024 Lymphocytes/100 WBC (Bld) 18.3 % Low 19-41 [facility] MCV (mean corpuscular volume ) determinationOrdered By: Jocelyn Beltre on 08-24-2024 MCV (RBC) [Entitic vol] 99.0 fL High 80-[address] [facility] Mean corpuscular hemoglobin (MCH) determinationOrdered By: Jocelyn Beltre on 08-24-2024 MCH (RBC) [Entitic mass] 32.2 pg High 27.0-32.0 [facility] Mean corpuscular hemoglobin concentration (MCHC) determinationOrdered By: Jocelyn Beltre on 08-24-2024 MCHC (RBC) [Mass/Vol] 32.5 g/dL 32-36 [facility] Mean platelet volume determi nationOrdered By: Jocelyn Beltre on 08-24-2024 Platelet mean volume (Bld) [Entitic vol] 11.0 fL 6.2-12.0 [facility] Monocyte percentageOrdered B y: Jocelyn Beltre on 08-24-2024 Monocytes/100 WBC (Bld) 8.2 % 0-[address] [facility] Neutrophil percentageOrdered By: Jocelyn Beltre on 08-24-2024 Neutrophils/100 WBC (Bld) 70.7 % High 47-70 [facility] Nucleated red blood cell per centageOrdered By: Jocelyn Beltre on 08-24-2024 Nucleated RBC/100 WBC (Bld) [Ratio] 0 % 0-5 [facility] Platelet countOrdered By: Aakash Beltre on 08-24-2024 Platelets (Bld) [#/Vol] 243 10*3/uL 150-450 [facility] Potassium measurementOrdered By: Jocelyn Beltre on 08-24-2024 Potassium [Moles/Vol] 4.2 mmol/L 3.5-5.1 [facility] RBC Auto (Bld) [#/Vol]Ordere d By: Jocelyn Belter on 08-24-2024 RBC (Bld) [#/Vol] 4.13 10*6/uL Low 4.6-6.2 [facility] Serum anion gap measurementO rdered By: Jocelyn Beltre on 08-24-2024 Anion gap [Moles/Vol] 6 mmol/L 5-15 [facility] Serum globulin measurementOr dered By: Jocelyn Beltre on 08-24-2024 Globulin (S) [Mass/Vol] 3.5 g/dL 2.2-4.2 [facility] Serum or plasma alanine kirk otransferase (ALT) measurementOrdered By: Jocelyn Beltre on 08-24-2024 ALT [Catalytic activity/Vol] 18 U/L 16-61 [facility] Serum or plasma albumin honey urement (mass/volume)Ordered By: Jocelyn Bletre on 08-24-2024 Albumin [Mass/Vol] 3.6 g/dL 3.2-5.0 [facility] Serum or plasma alkaline shoaib sphatase measurementOrdered By: Jocelyn Beltre on 08-24-2024 ALP [Catalytic activity/Vol] 89 U/L 45-117 [facility] Serum or plasma calcium honey urement (mass/volume)Ordered By: Jocelyn Beltre on 08-24-2024 Calcium [Mass/Vol] 8.5 mg/dL 8.5-10.1 [facility] Serum or plasma creatinine m easurement (mass/volume)Ordered By: Jocelyn Beltre on 08-24-2024 Creatinine [Mass/Vol] 1.01 mg/dL 0.70-1.30 [facility] Comment on above: The validity of the calculated GFR & GFRAA in patients over 70 years has not been determined. Clinical correlation is essential. Serum or plasma urea nitroge n measurement (mass/volume)Ordered By: Jocelyn Beltre on 08-24-2024 Urea nitrogen [Mass/Vol] 26 mg/dL High 7-18 [facility] Sodium levelOrdered By: Dorothea Beltre on 08-24-2024 Sodium [Moles/Vol] 139 mmol/L 136-145 [facility] Total proteinOrdered By: Guillaume Beltre on 08-24-2024 Protein [Mass/Vol] 7.1 g/dL 6.4-8.2 [facility] White blood cell (WBC) count Ordered By: Jocelyn Beltre on 08-24-2024 WBC (Bld) [#/Vol] 8.7 10*3/uL 4.4-11.0 [facility] CT ANGIOGRAPHY CHEST W/CONTR Kenny 06-09-2024 CT ANGIOGRAPHY CHEST W/CONTRAST ORIGINAL EXAMINATION: CTA OF THE CHEST06/07/2024 1:59 pm CTA CHEST WITH CONTRAST TECHNIQUE: CTA of the chest was performed after the administration of intravenous contrast. Multiplanar reformatted images are provided for review. MIP images are provided for review. Automated exposure control, iterative reconstruction, and/or weight based adjustment of the mA/kV was utilized to reduce the radiation dose to as low as reasonably achievable. CTA of the thorax was acquired in the axial plane. Coronal and sagittal reformatted images were reviewed. Three dimensional reconstructions were created on a separate workstation. COMPARISON: 01/01/2024 HISTORY: ORDERING SYSTEM PROVIDED HISTORY: Reason for Exam: aortic aneurism, FH marfans FINDINGS: No filling defects seen in the pulmonary arteries. The heart size is normal; no pericardial effusion. Coronary artery calcifications visualized. There are no pathologically enlarged axillary, mediastinal or hilar lymph nodes. The aortic annulus is measured at 2.7 cm. At the sinus of Valsalva, the thoracic aorta is measured at 4.6 cm as compared to 4.8 cm. At the sino-tubular junction level, the thoracic aorta is measured at 3.6 cm, unchanged. The ascending thoracic aorta measures a maximum of 3.8 cm. The aortic arch and descending thoracic aorta are unchanged. Mild ectasia of the descending thoracic aorta again noted. Multifocal pleural-parenchyma l scarring. Coarsened interstitial markings seen in the lower lungs. There is mild bronchiectasis. Small herniation of the right middle lobe noted anteriorly. This abnormality was not within the field of view on the prior exam. Trachea and central airways are patent. No pulmonary consolidation identified. There is no pleural effusion or pneumothorax. Mild degenerative changes seen of the spine. The upper abdomen is not evaluated in detail. No suspicious findings seen in the visualized portion of the abdomen. 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 Atherosclerosis with coronary artery calcifications Mild bronchiectasis Interpreted by: Adan Mondragon MD Preliminary Report By: Adan Mondragon MD Electronically signed By Adan Mondragon MD Dictated Date: 06/09/2024 1:48:29 PM Prelim Date: 06/09/2024 1:57:06 PM Sign Date: 06/09/2024 1:57:06 PM Ordering Provider: KARY PUCKETT Normal [facility] ANTINUCLEAR ANTIBODIES DIREC Ton 06-07-2024 TAMEKA,DIRECT Negative Normal Negative [facility] Comment on above: Result Comment: Perf ormed at: [facility] [address] [place], [place] [id number] Manager Of Care: Matthew Bell PhD, Phone: [phone] Performed By: #### L 500.4050, L100.0100 #### [facility] [address] [place], [place], [id number] CCP IgG Antibodieson 024 CCP IgG Ab. 6 units Normal 0-19 [facility] Comment on above: Result Comment: Nega tive <20 Weak positive 20 - 39 Moderate positive 40 - 59 Strong positive >59 Performed at: [facility] [address] [place], [place] [id number] Manager Of Care: Matthew Bell PhD, Phone: [phone] Performed By: #### L 500.4050, L100.0100 #### [facility] [address] [place], [address] CBC W/Diff, Automatedon 11-0 Absolute Lymph 1.31 X10 3/uL Normal 0.83-4.51 [facility] Comment on above: Performed By: #### L 100.0100, L501.6710, L500.4050, L3890.6100, L3100.5475, L3890.6300, L101.9900, L3890.6200, L4600.0100, L505.7010 #### [facility] [address] [place], [place], [phone] Absolute Neut 6.4 X10 3/uL Normal 2.0-7.7 [facility] Comment on above: Performed By: #### L 100.0100, L501.6710, L500.4050, L3890.6100, L3100.5475, L3890.6300, L101.9900, L3890.6200, L4600.0100, L505.7010 #### [facility] [address] [place], [address] Basophils/100 WBC (Bld) 0.7 % Normal 0-[address] [facility] Comment on above: Performed By: #### L 100.0100, L501.6710, L500.4050, L3890.6100, L3100.5475, L3890.6300, L101.9900, L3890.6200, L4600.0100, L505.7010 #### [facility] [address] [place], [place], [phone] Eosinophils/100 WBC (Bld) 2.7 % Normal 0-5 [facility] Comment on above: Performed By: #### L 100.0100, L501.6710, L500.4050, L3890.6100, L3100.5475, L3890.6300, L101.9900, L3890.6200, L4600.0100, L505.7010 #### [facility] [address] [place], [place], [phone] Erythrocyte distribution width (RBC) [Ratio] 13.4 % Normal 11.6-14.6 [facility] Comment on above: Performed By: #### L 100.0100, L501.6710, L500.4050, L3890.6100, L3100.5475, L3890.6300, L101.9900, L3890.6200, L4600.0100, L505.7010 #### [facility] [address] [place], [place], [phone] Hematocrit (Bld) [Volume fraction] 44.1 % Normal 40-54 [facility] Comment on above: Performed By: #### L 100.0100, L501.6710, L500.4050, L3890.6100, L3100.5475, L3890.6300, L101.9900, L3890.6200, L4600.0100, L505.7010 #### [facility] [address] [place], [address] Hemoglobin (Bld) [Mass/Vol] 14.6 g/dL Normal 13.0-16.5 [facility] Comment on above: Performed By: #### L 100.0100, L501.6710, L500.4050, L3890.6100, L3100.5475, L3890.6300, L101.9900, L3890.6200, L4600.0100, L505.7010 #### [facility] [address] [place], [address] IG% 0.700 Normal 0.0-0.9 [facility] Comment on above: Result Comment: IG% - Immature Granulocytes (promyelocytes, myelocytes and metamyelocytes) > 1% indicates that a LEFT SHIFT is Present. Performed By: #### L 100.0100, L501.6710, L500.4050, L3890.6100, L3100.5475, L3890.6300, L101.9900, L3890.6200, L4600.0100, L505.7010 #### [facility] [address] [place], [address] Lymphocytes/100 WBC (Bld) 14.9 % Low 19-41 [facility] Comment on above: Performed By: #### L 100.0100, L501.6710, L500.4050, L3890.6100, L3100.5475, L3890.6300, L101.9900, L3890.6200, L4600.0100, L505.7010 #### [facility] [address] [place], [address] MCH (RBC) [Entitic mass] 32.4 pg High 27.0-32.0 [facility] Comment on above: Performed By: #### L 100.0100, L501.6710, L500.4050, L3890.6100, L3100.5475, L3890.6300, L101.9900, L3890.6200, L4600.0100, L505.7010 #### [facility] [address] [place], [address] MCHC (RBC) [Mass/Vol] 33.1 g/dL Normal 32-36 [facility] Comment on above: Performed By: #### L 100.0100, L501.6710, L500.4050, L3890.6100, L3100.5475, L3890.6300, L101.9900, L3890.6200, L4600.0100, L505.7010 #### [facility] [address] [place], [address] MCV (RBC) [Entitic vol] 98.0 fL High 80-[address] [facility] Comment on above: Performed By: #### L 100.0100, L501.6710, L500.4050, L3890.6100, L3100.5475, L3890.6300, L101.9900, L3890.6200, L4600.0100, L505.7010 #### [facility] [address] [place], [address] Monocytes/100 WBC (Bld) 8.5 % Normal 0-10 [facility] Comment on above: Performed By: #### L 100.0100, L501.6710, L500.4050, L3890.6100, L3100.5475, L3890.6300, L101.9900, L3890.6200, L4600.0100, L505.7010 #### [facility] [address] [place], [address] Neutrophils/100 WBC (Bld) 72.5 % High 47-70 [facility] Comment on above: Performed By: #### L 100.0100, L501.6710, L500.4050, L3890.6100, L3100.5475, L3890.6300, L101.9900, L3890.6200, L4600.0100, L505.7010 #### [facility] [address] [place], [place], [address] Nucleated RBC (Bld) [#/Vol] 0 10*3/uL Normal 0-5 [facility] Comment on above: Performed By: #### L 100.0100, L501.6710, L500.4050, L3890.6100, L3100.5475, L3890.6300, L101.9900, L3890.6200, L4600.0100, L505.7010 #### [facility] [address] [place], [address] Platelet mean volume (Bld) [Entitic vol] 11.7 fL Normal 6.2-12.0 [facility] Comment on above: Performed By: #### L 100.0100, L501.6710, L500.4050, L3890.6100, L3100.5475, L3890.6300, L101.9900, L3890.6200, L4600.0100, L505.7010 #### [facility] [address] [place], [address] Platelets (Bld) [#/Vol] 239 10*3/uL Normal 150-450 [facility] Comment on above: Performed By: #### L 100.0100, L501.6710, L500.4050, L3890.6100, L3100.5475, L3890.6300, L101.9900, L3890.6200, L4600.0100, L505.7010 #### [facility] [address] [place], [address] RBC (Bld) [#/Vol] 4.50 10*6/uL Low 4.6-6.2 [facility] Comment on above: Performed By: #### L 100.0100, L501.6710, L500.4050, L3890.6100, L3100.5475, L3890.6300, L101.9900, L3890.6200, L4600.0100, L505.7010 #### [facility] [address] [place], [address] RDW SD 48.7 fl High 35.1-43.9 [facility] Comment on above: Performed By: #### L 100.0100, L501.6710, L500.4050, L3890.6100, L3100.5475, L3890.6300, L101.9900, L3890.6200, L4600.0100, L505.7010 #### [facility] [address] [place], [place], [id number] WBC (Bld) [#/Vol] 8.8 10*3/uL Normal 4.4-11.0 [facility] Comment on above: Performed By: #### L 100.0100, L501.6710, L500.4050, L3890.6100, L3100.5475, L3890.6300, L101.9900, L3890.6200, L4600.0100, L505.7010 #### [facility] [address] [place], [place], [id number] CRPon 06-06-2024 C-REACTIVE PROT < 2.90 Normal 0.0-3.0 [facility] Comment on above: Result Comment: C-Re active Protein (CRP) provides useful information for the diagnosis, therapy and monitoring of inflammatory processes and associated diseases. For the evaluation of Relative Risk for Cardiovascular Disease, a High Sensitivity CRP (HSCRP) should be ordered. Performed By: #### L 100.0100, L501.6710, L500.4050, L3890.6100, L3100.5475, L3890.6300, L101.9900, L3890.6200, L4600.0100, L505.7010 #### [facility] [address] [place], [address] Comprehensive Metabolic Prof ilon 06-06-2024 Albumin [Mass/Vol] 3.5 g/dL Normal 3.2-5.0 [facility] Comment on above: Performed By: #### L 100.0100, L501.6710, L500.4050, L3890.6100, L3100.5475, L3890.6300, L101.9900, L3890.6200, L4600.0100, L505.7010 #### [facility] [address] [place], [address] Albumin/Globulin [Mass ratio] 1.0 {ratio} Normal 0.9-2.4 [facility] Comment on above: Performed By: #### L 100.0100, L501.6710, L500.4050, L3890.6100, L3100.5475, L3890.6300, L101.9900, L3890.6200, L4600.0100, L505.7010 #### [facility] [address] [place], [address] ALK P 90 U/L Normal 45-117 [facility] Comment on above: Performed By: #### L 100.0100, L501.6710, L500.4050, L3890.6100, L3100.5475, L3890.6300, L101.9900, L3890.6200, L4600.0100, L505.7010 #### [facility] [address] [place], [address] ALT [Catalytic activity/Vol] 15 U/L Low 16-61 [facility] Comment on above: Performed By: #### L 100.0100, L501.6710, L500.4050, L3890.6100, L3100.5475, L3890.6300, L101.9900, L3890.6200, L4600.0100, L505.7010 #### [facility] [address] [place], [address] AST [Catalytic activity/Vol] 16 U/L Normal 15-37 [facility] Comment on above: Performed By: #### L 100.0100, L501.6710, L500.4050, L3890.6100, L3100.5475, L3890.6300, L101.9900, L3890.6200, L4600.0100, L505.7010 #### [facility] [address] [place], [address] Bilirubin [Mass/Vol] 0.50 mg/dL Normal 0.20-1.00 [facility] Comment on above: Result Comment: For patients on eltrombopag therapy, use of Dimension [place] TBIL is not recommended. Performed By: #### L 100.0100, L501.6710, L500.4050, L3890.6100, L3100.5475, L3890.6300, L101.9900, L3890.6200, L4600.0100, L505.7010 #### [facility] [address] [place], [address] BUN/CRE 22.5 RATIO High 10-20 [facility] Comment on above: Performed By: #### L 100.0100, L501.6710, L500.4050, L3890.6100, L3100.5475, L3890.6300, L101.9900, L3890.6200, L4600.0100, L505.7010 #### [facility] [address] [place], [address] CA,Total 9.0 mg/dL Normal 8.5-10.1 [facility] Comment on above: Performed By: #### L 100.0100, L501.6710, L500.4050, L3890.6100, L3100.5475, L3890.6300, L101.9900, L3890.6200, L4600.0100, L505.7010 #### [facility] [address] [place], [address] Chloride [Moles/Vol] 108 mmol/L High 98-107 [facility] Comment on above: Performed By: #### L 100.0100, L501.6710, L500.4050, L3890.6100, L3100.5475, L3890.6300, L101.9900, L3890.6200, L4600.0100, L505.7010 #### [facility] [address] [place], [address] CO2 [Moles/Vol] 22.0 mmol/L Normal 21.0-32.0 [facility] Comment on above: Performed By: #### L 100.0100, L501.6710, L500.4050, L3890.6100, L3100.5475, L3890.6300, L101.9900, L3890.6200, L4600.0100, L505.7010 #### [facility] [address] [place], [address] Creatinine [Mass/Vol] 0.98 mg/dL Normal 0.70-1.30 [facility] Comment on above: Result Comment: The validity of the calculated GFR GFRAA in patients over 70 years has not been determined. Clinical correlation is essential. Performed By: #### L 100.0100, L501.6710, L500.4050, L3890.6100, L3100.5475, L3890.6300, L101.9900, L3890.6200, L4600.0100, L505.7010 #### [facility] [address] [place], [address] EST GFR - AA 95 mL/min Normal >60 [facility] Comment on above: Result Comment: Afri can Uzbek GFR Calc Performed By: #### L 100.0100, L501.6710, L500.4050, L3890.6100, L3100.5475, L3890.6300, L101.9900, L3890.6200, L4600.0100, L505.7010 #### [facility] [address] [place], [place], [id number] (152) GAP 8 Normal 5-15 [facility] Comment on above: Performed By: #### L 100.0100, L501.6710, L500.4050, L3890.6100, L3100.5475, L3890.6300, L101.9900, L3890.6200, L4600.0100, L505.7010 #### [facility] [address] [place], [place], [phone] (911) GFR/1.73 sq M.predicted among non-blacks MDRD (S/P/Bld) [Vol rate/Area] 78 mL/min/{1.73_m2} Normal >60 [facility] Comment on above: Result Comment: Non- GFR Calc Performed By: #### L 100.0100, L501.6710, L500.4050, L3890.6100, L3100.5475, L3890.6300, L101.9900, L3890.6200, L4600.0100, L505.7010 #### [facility] [address] [place], [address] Globulin (S) [Mass/Vol] 3.6 g/dL Normal 2.2-4.2 [facility] Comment on above: Performed By: #### L 100.0100, L501.6710, L500.4050, L3890.6100, L3100.5475, L3890.6300, L101.9900, L3890.6200, L4600.0100, L505.7010 #### [facility] [address] [place], [address] Glucose [Mass/Vol] 111 mg/dL High 74-106 [facility] Comment on above: Result Comment: Fast ing Glucose result from 100 to 125 mg/dL suggests IMPAIRED HOMEOSTASIS per A.D.A. criteria. Performed By: #### L 100.0100, L501.6710, L500.4050, L3890.6100, L3100.5475, L3890.6300, L101.9900, L3890.6200, L4600.0100, L505.7010 #### [facility] [address] [place], [address] Potassium [Moles/Vol] 4.4 mmol/L Normal 3.5-5.1 [facility] Comment on above: Performed By: #### L 100.0100, L501.6710, L500.4050, L3890.6100, L3100.5475, L3890.6300, L101.9900, L3890.6200, L4600.0100, L505.7010 #### [facility] [address] [place], [address] Sodium [Moles/Vol] 138 mmol/L Normal 136-145 [facility] Comment on above: Performed By: #### L 100.0100, L501.6710, L500.4050, L3890.6100, L3100.5475, L3890.6300, L101.9900, L3890.6200, L4600.0100, L505.7010 #### [facility] [address] [place], [address] T PROT 7.1 g/dL Normal 6.4-8.2 [facility] Comment on above: Performed By: #### L 100.0100, L501.6710, L500.4050, L3890.6100, L3100.5475, L3890.6300, L101.9900, L3890.6200, L4600.0100, L505.7010 #### [facility] [address] [place], [address] Urea nitrogen [Mass/Vol] 22 mg/dL High 7-18 [facility] Comment on above: Performed By: #### L 100.0100, L501.6710, L500.4050, L3890.6100, L3100.5475, L3890.6300, L101.9900, L3890.6200, L4600.0100, L505.7010 #### [facility] [address] [place], [address] Erythrocyte Sed Rateon 06-06 SED RATE 12 mm/hr Normal 0-20 [facility] Comment on above: Performed By: #### L 100.0100, L501.6710, L500.4050, L3890.6100, L3100.5475, L3890.6300, L101.9900, L3890.6200, L4600.0100, L505.7010 #### [facility] [address] [place], [address] Hepatitis B Surface Antibody on 06-06-2024 HEP B Surf Ab Reactive Normal [facility] Comment on above: Result Comment: Non Reactive: Inconsistent with immunity less than <10 mIU/mL Reactive: Consistent with immunity greater than or equal to 10 mIU/mL Performed By: #### L 100.0100, L501.6710, L500.4050, L3890.6100, L3100.5475, L3890.6300, L101.9900, L3890.6200, L4600.0100, L505.7010 #### [facility] [address] [place], [address] Hepatitis B Surface Antigeno n 06-06-2024 HEP B Surf Ag Non-Reactive Normal Nonreactive [facility] Comment on above: Performed By: #### L 100.0100, L501.6710, L500.4050, L3890.6100, L3100.5475, L3890.6300, L101.9900, L3890.6200, L4600.0100, L505.7010 #### [facility] [address] [place], [place], [id number] Hepatitis C Antibodyon 06-06 Hepatitis C AB Non-Reactive Normal Nonreactive [facility] Comment on above: Result Comment: Non Reactive: < 0.8 Equivocal: >/= 0.8 to < 1.0 Reactive: >/= 1.0 The [facility] requires that a reactive/equivocal HCV antibody result be sent out for confirmation. HCV Quant by PCR testing. Performed By: #### L 100.0100, L501.6710, L500.4050, L3890.6100, L3100.5475, L3890.6300, L101.9900, L3890.6200, L4600.0100, L505.7010 #### [facility] [address] [place], [place], [address] Rheumatoid Factoron 06-06-20 24 RHEUMATOID FAC < 10.0 Normal <15 [facility] Comment on above: Performed By: #### L 100.0100, L501.6710, L500.4050, L3890.6100, L3100.5475, L3890.6300, L101.9900, L3890.6200, L4600.0100, L505.7010 #### [facility] [address] [place], [place], [id number] [facility] Telephone ([facility]) -------- JAKE DEVLIN ([id number]) 1945 M Date Time Provider Department 03/08/24 YUSUF ANN [facility] During your visit today, we recorded the following information about you: Yusuf Ann [facility] 03/08/2024 12:52 PM Signed Left voicemail requesting callback. Re-requisition to aortopathy panel was negative or normal. No clear genetic cause identified for his aortic root ectasia/aneurysm. Recommend clinical screening of children and first-degree relatives, but no genetic testing is indicated for children at this time. ---- Yusuf Ann MS, [facility] Licensed Genetic Counselor Email: [email or web address] Allergies As of Date: 03/08/2024 (Not on File) Date Reviewed: Never Reviewed Reason for Visit: Results [95] Problem List As Of Date: 03/08/2024 (None) Encounter Status:Closed by YUSUF ANN on 03/08/24 Normal [facility] .GFRon 02-29-2024 GFR Non- >60 Normal [facility] ([place]) Comment on above: Result Comment: GFR Population mean for , Non- Americans Ages 20-29 = 116 mL/min/1.73 sq.m. Ages 30-39 = 107 mL/min/1.73 sq.m. Ages 40-49 = 99 mL/min/1.73 sq.m. Ages 50-59 = 93 mL/min/1.73 sq.m. Ages 60-69 = 85 mL/min/1.73 sq.m. Ages 70+ = 75 mL/min/1.73 sq.m. Chronic Kidney Disease: Less than 60 mL/min/1.73 square meters End Stage Renal Disease: Less than 15 mL/min/1.73 square meters Performed By: #### E SR, CMP, GFR, LIPID #### [place] [address] GFR >60 Normal Pending sale to [facility] ([place]) Comment on above: Result Comment: GFR Population mean for , Non- Americans Ages 20-29 = 116 mL/min/1.73 sq.m. Ages 30-39 = 107 mL/min/1.73 sq.m. Ages 40-49 = 99 mL/min/1.73 sq.m. Ages 50-59 = 93 mL/min/1.73 sq.m. Ages 60-69 = 85 mL/min/1.73 sq.m. Ages 70+ = 75 mL/min/1.73 sq.m. Chronic Kidney Disease: Less than 60 mL/min/1.73 square meters End Stage Renal Disease: Less than 15 mL/min/1.73 square meters Performed By: #### E SR, CMP, GFR, LIPID #### [address] [address] CMPon 02-29-2024 Albumin Level 3.5 G/dL Normal 3.2-4.8 [facility] ([place]) Comment on above: Performed By: #### E SR, CMP, GFR, LIPID #### [address] [address] Albumin/Globulin [Mass ratio] 1.2 {ratio} Normal 0.9-1.6 [facility] ([place]) Comment on above: Performed By: #### E SR, CMP, GFR, LIPID #### [address] [address] ALP [Catalytic activity/Vol] 90 U/L Normal 38-126 [facility] ([place]) Comment on above: Performed By: #### E SR, CMP, GFR, LIPID #### [address] [address] ALT [Catalytic activity/Vol] 12 U/L Normal 12-55 [facility] ([place]) Comment on above: Performed By: #### E SR, CMP, GFR, LIPID #### [address] [address] AST [Catalytic activity/Vol] 20 U/L Normal 8-34 [facility] ([place]) Comment on above: Performed By: #### E SR, CMP, GFR, LIPID #### [address] [address] Bili Total 0.60 mg/dL Normal 0.20-1.20 [facility] ([place]) Comment on above: Result Comment: Use of this assay is not recommended for patients undergoing treatment with eltrombopag due to the potential for falsely elevated results. Performed By: #### E SR, CMP, GFR, LIPID #### [address] [address] BUN/Creatinine Ratio 30.3 ratio High 10.0-22.0 [facility] ([place]) Comment on above: Performed By: #### E SR, CMP, GFR, LIPID #### [address] [address] Calcium [Mass/Vol] 8.8 mg/dL Normal 8.7-10.4 [facility] ([place]) Comment on above: Performed By: #### E SR, CMP, GFR, LIPID #### [address] [address] Chloride [Moles/Vol] 111 mmol/L High 98-110 [facility] ([place]) Comment on above: Performed By: #### E SR, CMP, GFR, LIPID #### [address] [address] CO2 [Moles/Vol] 27 mmol/L Normal 22-32 [facility] ([place]) Comment on above: Performed By: #### E SR, CMP, GFR, LIPID #### [address] [address] Creatinine [Mass/Vol] 0.99 mg/dL Normal 0.60-1.40 [facility] ([place]) Comment on above: Performed By: #### E SR, CMP, GFR, LIPID #### [address] [address] Electrolyte Balance 2.0 mEq/L Low 4.0-15.0 [facility] ([place]) Comment on above: Performed By: #### E SR, CMP, GFR, LIPID #### [address] [address] Globulin 2.8 G/dL Normal 1.5-3.8 [facility] ([place]) Comment on above: Performed By: #### E SR, CMP, GFR, LIPID #### [address] [address] Glucose [Mass/Vol] 108 mg/dL Normal 82-115 [facility] ([place]) Comment on above: Performed By: #### E SR, CMP, GFR, LIPID #### [address] [address] Potassium [Moles/Vol] 4.8 mmol/L Normal 3.5-5.0 [facility] ([place]) Comment on above: Performed By: #### E SR, CMP, GFR, LIPID #### [address] [address] Sodium [Moles/Vol] 140 mmol/L Normal 136-145 [facility] ([place]) Comment on above: Performed By: #### E SR, CMP, GFR, LIPID #### [address] [address] Total Protein 6.3 G/dL Normal 5.7-8.2 [facility] ([place]) Comment on above: Result Comment: No te - New Reference Range in effect 20 Performed By: #### E SR, CMP, GFR, LIPID #### [place] [address] Urea nitrogen [Mass/Vol] 30.0 mg/dL High 8.0-22.0 [facility] ([place]) Comment on above: Performed By: #### E SR, CMP, GFR, LIPID #### [address] [address] ESRon 02-29-2024 Erythrocyte Sed Rate 6 mm/hr Normal 0-20 [facility] ([place]) Comment on above: Performed By: #### E SR, CMP, GFR, LIPID #### [address] [address] LIPIDon 02-29-2024 Cholesterol [Mass/Vol] 146 mg/dL Normal 50-199 [facility] ([place]) Comment on above: Result Comment: Chol esterol Reference Interval: Less than 200 Desirable 200-239 Borderline high risk 240 and above High risk Performed By: #### E SR, CMP, GFR, LIPID #### [address] [address] Cholesterol in HDL [Mass/Vol] 44 mg/dL Normal 40-59 [facility] ([place]) Comment on above: Performed By: #### E SR, CMP, GFR, LIPID #### [address] [place], [place] [address] Cholesterol in LDL [Mass/Vol] 86 mg/dL Normal 0-129 [facility] ([place]) Comment on above: Performed By: #### E SR, CMP, GFR, LIPID #### [facility] [address] [place] [address] Triglyceride [Mass/Vol] 82 mg/dL Normal 3-149 A [facility] ([place]) Comment on above: Performed By: #### E SR, CMP, GFR, LIPID #### [place] [id number] [address] [place] [address] CNPNon 02-16-2024 CNPN Telephone ([facility]) -------- JAKE DEVLIN ([id number]) 1945 M Date Time Provider Department 02/16/24 YUSUF ANN [facility] During your visit today, we recorded the following information about you: Yusuf Ann [facility] 02/16/2024 10:06 AM Signed Results were negative for the familial FBN1 variant. Also left voicemail with nurse (Diane) with Dr. Jauregui's office to clarify aortic dimensions. ---- Yusuf Ann MS, [facility] Licensed Genetic Counselor Email: [email or web address] Yusuf Ann [facility] 02/19/2024 12:04 PM Signed Spoke with patient. Genetic testing (FBN1 sequencing) for Marfan syndrome was negative or normal. He is unlikely to have Marfan syndrome. If his aorta is only mildly dilated this could be normal age-related remodeling and would be consistent with normal genetic testing results. If his aorta is significantly dilated (e.g. >4.5 cm, especially if dilated at the aortic root) we should consider asking the genetic testing lab to reanalyze additional genes associated with hereditary thoracic aortic disease. He understood. I will try calling Dr. Jauregui's office again next week and they will also try to reach out for us to obtain measurements. Otherwise at this time no additional screening or testing is recommended for children or grandchildren. ---- Yusuf Ann MS, [facility] Licensed Genetic Counselor Email: [email or web address] Allergies As of Date: 02/16/2024 (Not on File) Date Reviewed: Never Reviewed Reason for Visit: Results [95] Problem List As Of Date: 02/16/2024 (None) Encounter Status:Closed by YUSUF ANN on 02/19/24 Normal [facility] CT ANGIOGRAPHY CHEST W/CONTR Kenny 01-04-2024 CT ANGIOGRAPHY CHEST W/CONTRAST ORIGINAL EXAMINATION: CTA OF THE CHEST01/01/2024 11:09 am CTA CHEST WITH CONTRAST TECHNIQUE: CTA of the chest was performed after the administration of intravenous contrast. Multiplanar reformatted images are provided for review. MIP images are provided for review. Automated exposure control, iterative reconstruction, and/or weight based adjustment of the mA/kV was utilized to reduce the radiation dose to as low as reasonably achievable. CTA of the thorax was acquired in the axial plane. Coronal and sagittal reformatted images were reviewed. Three dimensional reconstructions were created on a separate workstation. COMPARISON: None HISTORY: ORDERING SYSTEM PROVIDED HISTORY: Reason for Exam: FH marfans, aortic aneurism FINDINGS: No filling defects seen in the pulmonary arteries. The heart size is normal; no pericardial effusion. Abnormal contour and attenuation seen within the right atrial appendage and right atrium. Atherosclerosis seen including coronary artery calcifications. The central pulmonary arteries are borderline in caliber. There are no pathologically enlarged axillary, mediastinal or hilar lymph nodes. The aortic valve plane/annulus measures 3.4 cm. At the coronary sinus level, the thoracic aorta is 4.8 cm. At the level of the sino-tubular junction, the ascending thoracic aorta measures 3.6 cm. At the level of the main pulmonary artery, the ascending aorta is 3.8 cm. The aortic arch measures 3.0 cm. The descending thoracic aorta measures up to 3.3 cm Scattered atherosclerotic plaques seen in the aorta. Normal great vessel branching pattern seen. No dissection is identified. Trachea and central airways are patent. Scarring/atelectas is seen in the visualized lungs. Portions of the lungs are not included within the field of view. Multifocal pleural-parenchyma l scarring is identified. Mild bronchiectasis. There is no pleural effusion or pneumothorax. No aggressive osseous lesions seen. Degenerative changes seen in the spine. The upper abdomen is not evaluated in detail. IMPRESSION: 1. Irregular appearance of the right atrium and right atrial appendage could relate to mixing artifact or underlying pathology. Echocardiogram advised to exclude pathology, especially in the right atrial appendage 2. Aneurysmal dilatation of the aortic root. The aortic valve is not well evaluated. There is also ectasia of the descending thoracic aorta 3. Atherosclerosis including coronary artery calcifications. 4. Mild bronchiectasis. 5. Other incidental findings, as above. Interpreted by: Adan Mondragon MD Preliminary Report By: Adan Mondragon MD Electronically signed By Adan Mondragon MD Dictated Date: 01/04/2024 3:59:52 PM Prelim Date: 01/04/2024 4:10:20 PM Sign Date: 01/04/2024 4:10:20 PM Ordering Provider: KARY PUCKETT [facility]) LABORATORYOrdered By: SYSTEM SYSTEM on 01-01-2024 Natriuretic peptide.B prohormone N-Terminal [Mass/Vol] 57 pg/mL Normal 0 - 450 pg/mL AO ADM SS Comment on above: Interpretive Data: N T-proBNP results of less than 300 pg/mL effectively rules out acute congestive heart failure with 99% negative predictive value. PBNPon 01-01-2024 Natriuretic peptide B (Bld) [Mass/Vol] 57 pg/mL Normal 0-450 [facility]) Comment on above: Result Comment: NT-p roBNP results of less than 300 pg/mL effectively rules out acute congestive heart failure with 99% negative predictive value. Performed By: #### P BNP #### [facility] [address] [place], [place] [address] .Auto Diffon 12-14-2023 Basophil, Absolute 0.1 10 3/mcL Normal 0.0-0.3 [facility]) Comment on above: Performed By: #### C BC, ADIFF, ANEU, GFR, CMP #### [address] [address] Basophils/100 WBC (Bld) 0.7 % Normal 0.0-2.5 A [facility] ([place]) Comment on above: Performed By: #### C BC, ADIFF, ANEU, GFR, CMP #### [address] [address] Eosinophil, Absolute 0.2 10 3/mcL Normal 0.0-0.7 [facility] ([place]) Comment on above: Performed By: #### C BC, ADIFF, ANEU, GFR, CMP #### [address] [address] Eosinophils/100 WBC (Bld) 3.1 % Normal 0.0-6.0 [facility] ([place]) Comment on above: Performed By: #### C BC, ADIFF, ANEU, GFR, CMP #### [address] [address] Lymphocyte, Absolute 1.7 10 3/mcL Normal 0.9-4.3 [facility] ([place]) Comment on above: Performed By: #### C BC, ADIFF, ANEU, GFR, CMP #### [address] [address] Lymphocytes/100 WBC (Bld) 23.9 % Normal 20.0-40.0 [facility] ([place]) Comment on above: Performed By: #### C BC, ADIFF, ANEU, GFR, CMP #### [address] [address] Monocyte, Absolute 0.6 10 3/mcL Normal 0.1-1.4 Pending [facility] to [facility] ([place]) Comment on above: Performed By: #### C BC, ADIFF, ANEU, GFR, CMP #### [address] [address] Monocytes/100 WBC (Bld) 8.6 % Normal 2.0-13.0 A [facility] ([place]) Comment on above: Performed By: #### C BC, ADIFF, ANEU, GFR, CMP #### [address] [address] Neutrophils/100 WBC (Bld) 63.7 % Normal 50.0-75.0 [facility] ([place]) Comment on above: Performed By: #### C BC, ADRAEGAN, ANEU, GFR, CMP #### [address] [address] .GFRon 12-14-2023 GFR >60 Normal Pending sale to [facility] ([place]) Comment on above: Result Comment: GFR Population mean for , Non- Americans Ages 20-29 = 116 mL/min/1.73 sq.m. Ages 30-39 = 107 mL/min/1.73 sq.m. Ages 40-49 = 99 mL/min/1.73 sq.m. Ages 50-59 = 93 mL/min/1.73 sq.m. Ages 60-69 = 85 mL/min/1.73 sq.m. Ages 70+ = 75 mL/min/1.73 sq.m. Chronic Kidney Disease: Less than 60 mL/min/1.73 square meters End Stage Renal Disease: Less than 15 mL/min/1.73 square meters Performed By: #### C BC, ADRAEGAN, ANEU, GFR, CMP #### [address] [address] GFR Non- >60 Normal [facility] ([place]) Comment on above: Result Comment: GFR Population mean for , Non- Americans Ages 20-29 = 116 mL/min/1.73 sq.m. Ages 30-39 = 107 mL/min/1.73 sq.m. Ages 40-49 = 99 mL/min/1.73 sq.m. Ages 50-59 = 93 mL/min/1.73 sq.m. Ages 60-69 = 85 mL/min/1.73 sq.m. Ages 70+ = 75 mL/min/1.73 sq.m. Chronic Kidney Disease: Less than 60 mL/min/1.73 square meters End Stage Renal Disease: Less than 15 mL/min/1.73 square meters Performed By: #### C BC, ADIFF, ANEU, GFR, CMP #### [address] [address] .NEUABSon 12-14-2023 Neutrophil, Absolute 4.7 10 3/mcL Normal 2.3-8.1 [facility] ([place] Comment on above: Performed By: #### C BC, ADIFF, ANEU, GFR, CMP #### [place] [id number] CBCon 12-14-2023 Erythrocyte distribution width (RBC) [Ratio] 14.0 % Normal 11.5-15.5 [facility] ([place] Comment on above: Performed By: #### C BC, ADIFF, ANEU, GFR, CMP #### [place] [address] Hematocrit (Bld) [Volume fraction] 42.8 % Normal 40.0-52.0 [facility] ([place] Comment on above: Performed By: #### C BC, ADIFF, ANEU, GFR, CMP #### [place] [address] Hgb 14.2 G/dL Normal 13.0-17.5 [facility] ([place] Comment on above: Performed By: #### C BC, ADIFF, ANEU, GFR, CMP #### [place] [address] MCH (RBC) [Entitic mass] 32.2 pg Normal 27.0-33.0 [facility] ([place] Comment on above: Performed By: #### C BC, ADIFF, ANEU, GFR, CMP #### [place] [address] MCHC 33.3 G/dL Normal 32.0-36.0 [facility] ([place] Comment on above: Performed By: #### C BC, ADIFF, ANEU, GFR, CMP #### [place] [address] MCV (RBC) [Entitic vol] 96.6 fL Normal 81.0-100.0 A [facility] ([place]) Comment on above: Performed By: #### C BC, ADIFF, ANEU, GFR, CMP #### [place] [address] Platelet 219 10 3/mcL Normal 150-450 [facility] ([place] Comment on above: Performed By: #### C BC, ADIFF, ANEU, GFR, CMP #### [place] [address] Platelet mean volume (Bld) [Entitic vol] 9.7 fL Normal 6.4-10.5 [facility] ([place] Comment on above: Performed By: #### C BC, ADIFF, ANEU, GFR, CMP #### [place] [address] RBC 4.43 10 6/mcL Low 4.50-6.00 [facility] ([place] Comment on above: Performed By: #### C BC, ADIFF, ANEU, GFR, CMP #### [place] [address] WBC 7.3 10 3/mcL Normal 4.5-10.8 [facility] ([place] Comment on above: Performed By: #### C BC, ADIFF, ANEU, GFR, CMP #### [place] [address] CMPon 12-14-2023 Albumin Level 3.4 G/dL Normal 3.2-4.8 [facility] ([place] Comment on above: Performed By: #### C BC, ADIFF, ANEU, GFR, CMP #### [place] [address] Albumin/Globulin [Mass ratio] 1.2 {ratio} Normal 0.9-1.6 [facility] ([place] Comment on above: Performed By: #### C BC, ADIFF, ANEU, GFR, CMP #### [place] [address] ALP [Catalytic activity/Vol] 88 U/L Normal 38-126 [facility] ([place] Comment on above: Performed By: #### C BC, ADIFF, ANEU, GFR, CMP #### [place] [address] ALT [Catalytic activity/Vol] 9 U/L Low 12-55 [facility] ([place] Comment on above: Performed By: #### C BC, ADIFF, ANEU, GFR, CMP #### [place] [address] AST [Catalytic activity/Vol] 20 U/L Normal 8-34 [facility] ([place] Comment on above: Performed By: #### C BC, ADIFF, ANEU, GFR, CMP #### [address] [address] Bili Total 0.50 mg/dL Normal 0.20-1.20 [facility] ([place] Comment on above: Result Comment: Use of this assay is not recommended for patients undergoing treatment with eltrombopag due to the potential for falsely elevated results. Performed By: #### C BC, ADIFF, ANEU, GFR, CMP #### [place] [id number] BUN/Creatinine Ratio 27.5 ratio High 10.0-22.0 Pending sale to [facility] [place] Comment on above: Performed By: #### C BC, ADIFF, ANEU, GFR, CMP #### [place] [phone] Calcium [Mass/Vol] 8.7 mg/dL Normal 8.7-10.4 [facility] ([place] Comment on above: Performed By: #### C BC, ADIFF, ANEU, GFR, CMP #### [place] [id number] Chloride [Moles/Vol] 110 mmol/L Normal 98-110 Pending sale to [facility] [place] Comment on above: Performed By: #### C BC, ADIFF, ANEU, GFR, CMP #### [place] [phone] CO2 [Moles/Vol] 24 mmol/L Normal 22-32 [facility] [place] Comment on above: Performed By: #### C BC, ADIFF, ANEU, GFR, CMP #### [address] [address] Creatinine [Mass/Vol] 0.91 mg/dL Normal 0.60-1.40 [facility] ([place] Comment on above: Performed By: #### C BC, ADIFF, ANEU, GFR, CMP #### [place] [id number] Electrolyte Balance 8.0 mEq/L Normal 4.0-15.0 [facility] ([place] Comment on above: Performed By: #### C BC, ADIFF, ANEU, GFR, CMP #### [address] [address] Globulin 2.9 G/dL Normal 1.5-3.8 [facility] ([place] Comment on above: Performed By: #### C BC, ADIFF, ANEU, GFR, CMP #### [address] [address] Glucose [Mass/Vol] 98 mg/dL Normal 82-115 [facility] ([place] Comment on above: Performed By: #### C BC, ADIFF, ANEU, GFR, CMP #### [place] [address] Potassium [Moles/Vol] 4.4 mmol/L Normal 3.5-5.0 [facility] ([place] Comment on above: Performed By: #### C BC, ADIFF, ANEU, GFR, CMP #### [place] [address] Sodium [Moles/Vol] 142 mmol/L Normal 136-145 [facility] ([place] Comment on above: Performed By: #### C BC, ADIFF, ANEU, GFR, CMP #### [place] [id number] Total Protein 6.3 G/dL Normal 5.7-8.2 [facility] ([place] Comment on above: Result Comment: No te - New Reference Range in effect 20 Performed By: #### C BC, ADIFF, ANEU, GFR, CMP #### [address] [address] Urea nitrogen [Mass/Vol] 25.0 mg/dL High 8.0-22.0 [facility] ([place] Comment on above: Performed By: #### C BC, ADIFF, ANEU, GFR, CMP #### [address] [address] LABORATORYOrdered By: Penny Tam on 01-10-2022 Basophil, Absolute 0.0 103/mcL Invalid Interpretation Code 0.0 - 0.2 10^3/mcL AO Workflow SS Basophils/100 WBC (Bld) 0.4 % Invalid Interpretation Code 0.0 - 2.5 % AO Workflow SS Eosinophil, Absolute 0.3 103/mcL Invalid Interpretation Code 0.0 - 0.4 10^3/mcL AO Workflow SS Eosinophils/100 WBC (Bld) 4.4 % Invalid Interpretation Code 0.0 - 7.0 % AO Workflow SS Erythrocyte distribution width (RBC) [Ratio] 13.9 % Invalid Interpretation Code 11.5 - 14.5 % AO Workflow SS Hematocrit (Bld) [Volume fraction] 43.8 % Invalid Interpretation Code 42.0 - 52.0 % AO Workflow SS Hgb 14.8 G/dL Invalid Interpretation Code 14.0 - 18.0 G/dL AO Workflow SS Lymphocyte, Absolute 1.6 103/mcL Invalid Interpretation Code 0.8 - 3.9 10^3/mcL AO Workflow SS Lymphocytes/100 WBC (Bld) 27.0 % Invalid Interpretation Code 10.0 - 50.0 % AO Workflow SS MCH (RBC) [Entitic mass] 32.1 pg Invalid Interpretation Code 27.0 - 31.2 pg AO Workflow SS MCHC 33.7 G/dL Invalid Interpretation Code 31.8 - 35.4 G/dL AO Workflow SS MCV (RBC) [Entitic vol] 95.2 fL Invalid Interpretation Code 80.0 - 94.0 fL AO Workflow SS Monocyte, Absolute 0.5 103/mcL Invalid Interpretation Code 0.2 - 1.0 10^3/mcL AO Workflow SS Monocytes/100 WBC (Bld) 8.7 % Invalid Interpretation Code 1.7 - 13.0 % AO Workflow SS Neutrophil, Absolute 3.6 103/mcL Invalid Interpretation Code 2.9 - 6.2 10^3/mcL AO Workflow SS Neutrophils/100 WBC (Bld) 59.5 % Invalid Interpretation Code 37.0 - 80.0 % AO Workflow SS Platelet 205 103/mcL Invalid Interpretation Code 130 - 400 10^3/mcL AO Workflow SS Platelet mean volume (Bld) [Entitic vol] 9.3 fL Invalid Interpretation Code 7.4 - 10.4 fL AO Workflow SS RBC 4.60 106/mcL Invalid Interpretation Code 4.04 - 6.13 10^6/mcL AO Workflow SS WBC 6.0 103/mcL Invalid Interpretation Code 4.6 - 10.8 10^3/mcL AO Workflow SS LABORATORYOrdered By: Castillo Pulido on 01-10-2022 Calcium [Mass/Vol] 9.5 mg/dL Invalid Interpretation Code 8.4 - 10.2 mg/dL AO ADM SS Chloride [Moles/Vol] 105 mmol/L Invalid Interpretation Code 98 - 107 mmol/L AO ADM SS Cholesterol [Mass/Vol] 209 mg/dL Invalid Interpretation Code 0 - 200 mg/dL AO ADM SS Cholesterol in HDL [Mass/Vol] 54 mg/dL Invalid Interpretation Code 40 - 60 mg/dL AO ADM SS Cholesterol in LDL [Mass/Vol] 138 mg/dL Invalid Interpretation Code 0 - 130 mg/dL AO ADM SS CO2 [Moles/Vol] 28 mmol/L Invalid Interpretation Code 23 - 31 mmol/L AO ADM SS Creatinine [Mass/Vol] 1.10 mg/dL Invalid Interpretation Code 0.70 - 1.30 mg/dL AO ADM SS Electrolyte Balance 8.0 mEq/L Invalid Interpretation Code 4.0 - 15.0 mEq/L AO ADM SS Ferritin [Mass/Vol] 241.0 ng/mL Invalid Interpretation Code 26.0 - 388.0 ng/mL AO ADM SS Glucose [Mass/Vol] 93 mg/dL Invalid Interpretation Code 83 - 110 mg/dL AO ADM SS INR Coag (PPP) [Relative time] 1.1 {INR} Invalid Interpretation Code 0.9 - 1.2 ratio AO Coag SS Iron binding capacity [Mass/Vol] 291 mcg/dL Invalid Interpretation Code 250 - 450 mcg/dL AO ADM SS Magnesium [Mass/Vol] 2.1 mg/dL Invalid Interpretation Code 1.8 - 2.4 mg/dL AO ADM SS Natriuretic peptide.B prohormone N-Terminal [Mass/Vol] 88 pg/mL Invalid Interpretation Code 0 - 450 pg/mL AO ADM SS Potassium [Moles/Vol] 4.9 mmol/L Invalid Interpretation Code 3.5 - 5.1 mmol/L AO ADM SS PT Coag (PPP) [Time] 12.4 s Invalid Interpretation Code 9.7 - 14.3 seconds AO Coag SS Sodium [Moles/Vol] 141 mmol/L Invalid Interpretation Code 136 - 145 mmol/L AO ADM SS Triglyceride [Mass/Vol] 86 mg/dL Invalid Interpretation Code 0 - 150 mg/dL AO ADM SS TSH Qn 1.87 m[IU]/L Invalid Interpretation Code 0.36 - 3.74 mcIU/mL AO ADM SS Urea nitrogen [Mass/Vol] 21 mg/dL Invalid Interpretation Code 7 - 18 mg/dL AO ADM SS Urea nitrogen/Creatinine [Mass ratio] 19 ratio Invalid Interpretation Code 7 - 27 ratio AO ADM SS LABORATORYOrdered By: Margot Schafer on 01-10-2022 Fibrin D-dimer DDU (PPP) [Mass/Vol] 372 ng/mL D-DU Invalid Interpretation Code 0 - 230 ng/mL D-DU AO Coag SS LABORATORYOrdered By: SYSTEM SYSTEM on 01-10-2022 GFR 78 ml/min/1.73sqm Invalid Interpretation Code AO Chemistry S GFR Non- 65 ml/min/1.73sqm Invalid Interpretation Code AO Chemistry S Monocyte distribution width Auto (Bld) [Entitic vol] Not Performed 1 *NA* (01/10/22 12:31 PM) Invalid Interpretation Code 0.00 - 20.00 AO Hematology S Comment on above: Result Comment: MDW testing performed only on adult ER patients between the ages of 18-89 years. CORONAVIRUS 2019, SCREEN ASY MPTOMATICon 06-15-2020 CORONAVIRUS 2019,PCR NOT DETECTED Normal Not Detected [facility] Comment on above: Result Comment: . This assay is designed to detect the N, ORF1ab and/or S genes of SARS-CoV-2 via nucleic acid amplification. A Negative (NOT DETECTED) result does not preclude 2019-nCoV infection since the adequacy of sample collection and/or low viral burden may result in presence of viral nucleic acids below the clinical sensitivity of this test method. Negative (NOT DETECTED) result should not be used as the sole basis for treatment or other patient management decisions. Rather negative results should be combined with clinical observations, patient history, and epidemiological information to make patient management decisions. Fact sheet for providers: https://www.fda.gov/media/568766/download Fact sheet for patients: https://www.fda.gov/media/346986/download This test has received FDA Emergency Use Authorization (EUA) and has been verified by [facility] ([facility]). This test is only authorized for the duration of time that circumstances exist to justify the authorization of the emergency use of in vitro diagnostic tests for the detection of SARS-CoV-2 virus and/or diagnosis of COVID-19 infection under section 564(b)(1) of the Act, 21 U.S.C. 360bbb-3(b)(1), unless the authorization is terminated or revoked sooner. [facility] is certified under CLIA-88 as qualified to perform high complexity testing. Testing is performed in the [facility] laboratories located at [address] [place] [address]. Performed By: #### C OVSC #### [address] [place] [address] EMPLOYED IN HEALTHCARE? Unknown Normal [facility] Comment on above: Performed By: #### C OVSC #### [place] [address] [address] [facility] [place] [place] [address] FIRST COVID NASAL SWAB TEST? Unknown Normal [facility] Comment on above: Performed By: #### C OVSC #### [address] [facility] [place] [place] [address] HOSPITALIZED (OR PLANNED TO BE ADMITTED)? Unknown Normal [facility] Comment on above: Performed By: #### C OVSC #### [place] [address] [facility] [place] [address] ICU? Unknown Normal [facility] Comment on above: Performed By: #### C OVSC #### [place] [address] [facility] [place] [address] REQUIRED FOR PROCEDURE/SURGERY? Unknown Normal [facility] Comment on above: Performed By: #### C OVSC #### [place] [address] [facility] [place] [place] [address] RESIDENT IN CONGREGATE CARE SETTING? Unknown Normal [facility] Comment on above: Performed By: #### C OVSC #### [place] [address] [facility] [place] [address] SYMPTOMATIC DEFINED BY CDC? Unknown Normal [facility] Comment on above: Performed By: #### C OVSC #### [facility] [address] [place] [address] CORONAVIRUS 2019, SCREEN ASY MPTOMATICon 06-14-2020 Lab Specimen Source Nasal, Nasopharyngeal Normal [facility] Comment on above: Performed By: #### C OVSC #### [facility] [address] [place] [address] ALBUMINon 02-16-2020 Albumin [Mass/Vol] 3.8 g/dL Normal 3.2-5.0 [facility] Comment on above: Performed By: #### L 550.74856, L500.63330, L500.86382, L500.22435 #### [facility] [place] [address] BMPon 02-16-2020 Anion gap [Moles/Vol] 7 mmol/L Normal 5-16 [facility] Comment on above: Performed By: #### L 500.32215, L500.62579, L500.85610 #### [facility] [address] [place] [address] Calcium [Mass/Vol] 9.4 mg/dL Normal 8.5-10.5 [facility] Comment on above: Result Comment: NOTE NEW NORMAL RANGE DUE TO REAGENT CHANGE Performed By: #### L 500.09735, L500.03337, L500.30536 #### [facility] [address] [place] [address] Chloride [Moles/Vol] 107 mmol/L Normal 98-107 [facility] Comment on above: Performed By: #### L 500.90300, L500.31683, L500.28317 #### [facility] [place] [address] CO2 [Moles/Vol] 28.0 mmol/L Normal 21-32 [facility] Comment on above: Performed By: #### L 500.66230, L500.74366, L500.26030 #### [facility] [place] [address] Creatinine [Mass/Vol] 0.94 mg/dL Normal 0.5-1.4 [facility] Comment on above: Result Comment: NOTE NEW NORMAL RANGE DUE TO REAGENT CHANGE Patients receiving either N-Acetylcysteine (NAC) or Metamizole prior to venipuncture, may have falsely depressed results. Performed By: #### L 500.84277, L500.64784, L500.48624 #### [facility] [place] [address] Glucose [Mass/Vol] 106 mg/dL High 70-100 [facility] Comment on above: Result Comment: 70-1 00- Normal Fasting; 100-125 Impaired Fasting; greater than 126 on more than one result- Diabetes. ADA guidelines. Results may be falsely elevated after the administration of Sulfapyridine. Results may be falsely depressed after the administration of Sulfasalazine. Performed By: #### L 500.54524, L500.92068, L500.19007 #### [facility] [address] [place] [address] Potassium [Moles/Vol] 5.1 mmol/L Normal 3.5-5.1 [facility] Comment on above: Performed By: #### L 500.04064, L500.27328, L500.90056 #### [facility] [address] [place] [address] Sodium [Moles/Vol] 142 mmol/L Normal 136-145 [facility] Comment on above: Performed By: #### L 500.97209, L500.46501, L500.57602 #### [facility] [address] [place] [address] Urea nitrogen [Mass/Vol] 21 mg/dL Normal 7-26 [facility] Comment on above: Performed By: #### L 500.26578, L500.96956, L500.42186 #### [facility] [address] [place] [address] Urea nitrogen/Creatinine [Mass ratio] 22 mg/mg Normal 15-24 [facility] Comment on above: Performed By: #### L 500.15392, L500.21578, L500.85429 #### [facility] [address] [place] [address] CBC W/DIFFon 02-16-2020 BASO ABS 0.00 K/CU MM Normal 0-0.2 [facility] Comment on above: Performed By: #### L 200.66361, L200.09414 #### [facility] [address] [place] [address] Basophils/100 WBC (Bld) 0.4 % Normal 0-2 M [facility] Comment on above: Performed By: #### L 200.62998, L200.51906 #### [facility] [address] [place] [address] EOS ABS 0.20 K/CU MM Normal 0-0.5 [facility] Comment on above: Performed By: #### L 200.18960, L200.25221 #### [facility] [address] [place] [address] Eosinophils/100 WBC (Bld) 3.3 % Normal 0-5 [facility] Comment on above: Performed By: #### L 200.52043, L200.91928 #### [facility] [address] [place] [address] Erythrocyte distribution width (RBC) [Ratio] 13.1 % Normal 11-14.5 [facility] Comment on above: Performed By: #### L 200.32297, L200.84659 #### [facility] [address] [place] [address] Hematocrit (Bld) [Volume fraction] 46.1 % Normal 41.0-53.0 [facility] Comment on above: Performed By: #### L 200.14904, L200.90636 #### [facility] [address] [place] [address] Hemoglobin (Bld) [Mass/Vol] 15.4 g/dL Normal 13.5-17.5 [facility] Comment on above: Performed By: #### L 200.15753, L200.10168 #### [facility] [address] [place] [address] IMMATR GRAN ABS 0.10 K/CU MM Normal Less than 2 [facility] Comment on above: Performed By: #### L 200.79386, L200.19102 #### [facility] [address] [place] [address] IMMATURE GRAN % 0.7 % Normal Less than 2 [facility] Comment on above: Performed By: #### L 200.14013, L200.11565 #### [facility] [address] [place] [address] Lymphocytes (Bld) [#/Vol] 2.10 K/CU MM Normal 0.9-4.4 [facility] Comment on above: Performed By: #### L 200.69950, L200.36716 #### [facility] [address] [place] [address] Lymphocytes/100 WBC (Bld) 30.0 % Normal 20-40 [facility] Comment on above: Performed By: #### L 200.55581, L200.00140 #### [facility] [address] [place] [address] MCHC (RBC) [Mass/Vol] 33.4 g/dL Normal 32.0-36.0 [facility] Comment on above: Performed By: #### L 200.77845, L200.49847 #### [facility] [address] [place] [address] MCV (RBC) [Entitic vol] 98.5 fL Normal 80.0-99.0 M [facility] Comment on above: Performed By: #### L 200.82298, L200.73508 #### [facility] [place] [id number] MONO ABS 0.70 K/CU MM Normal 0.1-1.1 [facility] Comment on above: Performed By: #### L 200.90853, L200.00813 #### [facility] [address] [place] [address] Monocytes/100 WBC (Bld) 9.4 % Normal 2-10 M [facility] Comment on above: Performed By: #### L 200.30694, L200.54074 #### [facility] [address] [place] [address] NEUTROPHIL ABS 3.90 K/CU MM Normal 2.0-8.3 [facility] Comment on above: Performed By: #### L 200.43847, L200.69644 #### [facility] [address] [place] [address] Neutrophils/100 WBC (Bld) 56.2 % Normal 45-75 [facility] Comment on above: Performed By: #### L 200.73389, L200.69495 #### [facility] [address] [place] [address] Nucleated RBC/100 WBC (Bld) [Ratio] 0.0 % Normal Less than 1 [facility] Comment on above: Performed By: #### L 200.03820, L200.17689 #### [facility] [address] [place], [place] [address] Platelet mean volume (Bld) [Entitic vol] 10.7 fL Normal 9.4-12.4 [facility] Comment on above: Performed By: #### L 200.49610, L200.90184 #### [facility] [address] [place] [address] Platelets (Bld) [#/Vol] 226 K/CU MM Normal 150-450 [facility] Comment on above: Performed By: #### L 200.22220, L200.80416 #### [facility] [address] [place] [address] RBC (Bld) [#/Vol] 4.68 M/CU MM Normal 4.50-6.00 [facility] Comment on above: Performed By: #### L 200.26099, L200.60233 #### [facility] [address] [place] [address] WBC (Bld) [#/Vol] 7.0 K/CUMM Normal 4.5-11.0 [facility] Comment on above: Performed By: #### L 200.94189, L200.72246 #### [facility] [address] [place], [place] [address] CRPon 02-16-2020 CRP [Mass/Vol] 0.4 mg/L Normal 0.00-0.32 [facility] Comment on above: Performed By: #### L 550.05182, L500.11304, L500.26022, L500.15790 #### [facility] [address] [place], [place] [address] GFR ESTon 02-16-2020 IF AMER Greater than 60 Normal [facility] Comment on above: Performed By: #### L 500.61476, L500.18101, L500.28738 #### [facility] [address] [place] [address] IF non-AFR AMER Greater than 60 Normal [facility] Comment on above: Performed By: #### L 500.12169, L500.16416, L500.73651 #### [facility] [address] [place] [address] LIPIDon 02-16-2020 Cholesterol [Mass/Vol] 197 MG/dL Normal 0-199 Me [facility] Comment on above: Performed By: #### L 500.84141, L500.37745, L500.06824 #### [facility] [address] [place] [address] Cholesterol in HDL [Mass/Vol] 50 mg/dL Normal [place] [facility] Comment on above: Result Comment: Darya ents receiving Metamizole prior to venipuncture, may have falsely depressed results. Performed By: #### L 500.54249, L500.43138, L500.87839 #### [facility] [address] [place] [address] Cholesterol in LDL [Mass/Vol] 132 mg/dL Normal [facility] Comment on above: Result Comment: ___C HOLESTEROL/HDL RATIO RISK___ CHD RISK = Total CHOL LDL HDL (CHOL/HDL) Recommended <200 <130 >40 <3.4 Borderline 200-239 130-159 3.4-4.99 High >240 >160 >5.0 Performed By: #### L 500.67657, L500.55006, L500.06227 #### [facility] [address] [place] [address] Triglyceride [Mass/Vol] 76 mg/dL Normal 30-149 M [facility] Comment on above: Result Comment: Darya ents receiving either N-Acetylcysteine (NAC) or Metamizole prior to venipuncture, may have falsely depressed results. Performed By: #### L 500.53940, L500.46120, L500.68318 #### [facility] [address] [place] [address] SGOT (AST)on 02-16-2020 SGOT (AST) 28 U/L Normal 8-34 [facility] Comment on above: Result Comment: RESU LTS MAY BE FALSELY DEPRESSED AFTER THE ADMINISTRATION OF SULFASALAZINE AND/OR SULFAPYRIDINE. Performed By: #### L 550.61102, L500.15809, L500.41920, L500.96664 #### [facility] [address] [place] [address] SGPT (ALT)on 02-16-2020 ALT [Catalytic activity/Vol] 14 U/L Normal 13-61 [facility] Comment on above: Result Comment: RESU LTS MAY BE FALSELY DEPRESSED AFTER THE ADMINISTRATION OF SULFASALAZINE AND/OR SULFAPYRIDINE. Performed By: #### L 550.54674, L500.66867, L500.78738, L500.37914 #### [facility] [address] [place] [address] WSR/MODon 02-16-2020 WSR/MOD 3 MM/HR Normal 0-20 [facility] Comment on above: Performed By: #### L 200.87520, L200.82908 #### [facility] [address] [place] [address] # [phone] .Auto Diffon 02-11-2019 Ammonia (P) [Mass/Vol] 0.50 10 3/mcL Normal 0.09-1.40 [facility] ([place] Comment on above: Performed By: #### G FR, PSA, HFP, ESR, BMP, ANEU, ADIFF, CBC #### [address] [address] Basophils (Bld) [#/Vol] 0.00 10 3/mcL Normal 0.00-0.27 [facility] ([place] Comment on above: Performed By: #### G FR, PSA, HFP, ESR, BMP, ANEU, ADIFF, CBC #### [address] [address] Basophils/100 WBC (Bld) 0.5 % Normal 0.0-2.5 A [facility] ([place] Comment on above: Performed By: #### G FR, PSA, HFP, ESR, BMP, ANEU, ADIFF, CBC #### [address] [address] Eosinophils (Bld) [#/Vol] 0.20 10 3/mcL Normal 0.00-0.65 [facility] ([place] Comment on above: Performed By: #### G FR, PSA, HFP, ESR, BMP, ANEU, ADIFF, CBC #### [address] [address] Eosinophils/100 WBC (Bld) 3.4 % Normal 0.0-6.0 [facility] ([place] Comment on above: Performed By: #### G FR, PSA, HFP, ESR, BMP, ANEU, ADIFF, CBC #### [address] [address] Lymphocytes (Bld) [#/Vol] 1.60 10 3/mcL Normal 0.90-4.32 [facility] ([place] Comment on above: Performed By: #### G FR, PSA, HFP, ESR, BMP, ANEU, ADIFF, CBC #### [address] [address] Lymphocytes/100 WBC (Bld) 26.4 % Normal 20.0-40.0 [facility] ([place] Comment on above: Performed By: #### G FR, PSA, HFP, ESR, BMP, ANEU, ADIFF, CBC #### [facility] [address] [place] [address] Monocytes/100 WBC (Bld) 8.0 % Normal 2.0-13.0 A [facility] ([place] Comment on above: Performed By: #### G FR, PSA, HFP, ESR, BMP, ANEU, ADIFF, CBC #### [facility] [address] [place] [address] Neutrophils/100 WBC (Bld) 61.7 % Normal 50.0-75.0 [facility] ([place] Comment on above: Performed By: #### G FR, PSA, HFP, ESR, BMP, ANEU, ADIFF, CBC #### [address] [address] .GFRon 02-11-2019 GFR Non- >60 Normal [facility] ([place] Comment on above: Result Comment: GFR Population mean for , Non- Americans Ages 20-29 = 116 mL/min/1.73 sq.m. Ages 30-39 = 107 mL/min/1.73 sq.m. Ages 40-49 = 99 mL/min/1.73 sq.m. Ages 50-59 = 93 mL/min/1.73 sq.m. Ages 60-69 = 85 mL/min/1.73 sq.m. Ages 70+ = 75 mL/min/1.73 sq.m. Chronic Kidney Disease: Less than 60 mL/min/1.73 square meters End Stage Renal Disease: Less than 15 mL/min/1.73 square meters Performed By: #### G FR, PSA, HFP, ESR, BMP, ANEU, ADIFF, CBC #### [address] [address] GFR >60 Normal Pending sale to [facility] ([place] Comment on above: Result Comment: GFR Population mean for , Non- Americans Ages 20-29 = 116 mL/min/1.73 sq.m. Ages 30-39 = 107 mL/min/1.73 sq.m. Ages 40-49 = 99 mL/min/1.73 sq.m. Ages 50-59 = 93 mL/min/1.73 sq.m. Ages 60-69 = 85 mL/min/1.73 sq.m. Ages 70+ = 75 mL/min/1.73 sq.m. Chronic Kidney Disease: Less than 60 mL/min/1.73 square meters End Stage Renal Disease: Less than 15 mL/min/1.73 square meters Performed By: #### G FR, PSA, HFP, ESR, BMP, ANEU, ADIFF, CBC #### [address] [address] .NEUABSon 02-11-2019 Neutrophils (Bld) [#/Vol] 3.60 10 3/mcL Normal 2.25-8.10 [facility] ([place] Comment on above: Performed By: #### G FR, PSA, HFP, ESR, BMP, ANEU, ADIFF, CBC #### [address] [address] BMPon 02-11-2019 Creatinine [Mass/Vol] 0.92 mg/dL Normal 0.60-1.40 [facility] ([place] Comment on above: Performed By: #### G FR, PSA, HFP, ESR, BMP, ANEU, ADIFF, CBC #### [address] [address] Urea nitrogen/Creatinine [Mass ratio] 25.0 ratio High 10.0-22.0 [facility] ([place] Comment on above: Performed By: #### G FR, PSA, HFP, ESR, BMP, ANEU, ADIFF, CBC #### [address] [address] Calcium [Mass/Vol] 8.4 mg/dL Normal 8.4-10.1 [facility] ([place] Comment on above: Performed By: #### G FR, PSA, HFP, ESR, BMP, ANEU, ADIFF, CBC #### [address] [address] Chloride [Moles/Vol] 110 mmol/L Normal 98-110 [facility] to [facility] [place] Comment on above: Performed By: #### G FR, PSA, HFP, ESR, BMP, ANEU, ADIFF, CBC #### [address] [address] CO2 [Moles/Vol] 25 mmol/L Normal 22-32 [facility] ([place] Comment on above: Performed By: #### G FR, PSA, HFP, ESR, BMP, ANEU, ADIFF, CBC #### [address] [address] Electrolyte Balance 8.0 mEq/L Normal 4.0-15.0 [facility] ([place]) Comment on above: Performed By: #### G FR, PSA, HFP, ESR, BMP, ANEU, ADIFF, CBC #### [address] [address] Glucose [Mass/Vol] 87 mg/dL Normal 82-115 [facility] ([place] Comment on above: Performed By: #### G FR, PSA, HFP, ESR, BMP, ANEU, ADIFF, CBC #### [address] [address] Potassium [Moles/Vol] 4.3 mmol/L Normal 3.5-5.0 [facility] ([place] Comment on above: Performed By: #### G FR, PSA, HFP, ESR, BMP, ANEU, ADIFF, CBC #### [address] [address] Sodium [Moles/Vol] 143 mmol/L Normal 136-145 [facility] ([place] Comment on above: Performed By: #### G FR, PSA, HFP, ESR, BMP, ANEU, ADIFF, CBC #### [address] [address] Urea nitrogen [Mass/Vol] 23.0 mg/dL High 8.0-22.0 [facility] ([place] Comment on above: Performed By: #### G FR, PSA, HFP, ESR, BMP, ANEU, ADIFF, CBC #### [address] [address] CBCon 02-11-2019 Erythrocyte distribution width (RBC) [Ratio] 14.1 % Normal 11.5-15.5 [facility] ([place] Comment on above: Performed By: #### G FR, PSA, HFP, ESR, BMP, ANEU, ADIFF, CBC #### [place] [id number] Hematocrit (Bld) [Volume fraction] 42.3 % Normal 40.0-52.0 [facility] ([place] Comment on above: Performed By: #### G FR, PSA, HFP, ESR, BMP, ANEU, ADIFF, CBC #### [place] [id number] Hemoglobin (Bld) [Mass/Vol] 14.6 G/dL Normal 13.0-17.5 [facility] ([place] Comment on above: Performed By: #### G FR, PSA, HFP, ESR, BMP, ANEU, ADIFF, CBC #### [place] [id number] MCH (RBC) [Entitic mass] 33.5 pg High 27.0-33.0 [facility] ([place] Comment on above: Performed By: #### G FR, PSA, HFP, ESR, BMP, ANEU, ADIFF, CBC #### [place] [id number] MCHC (RBC) [Mass/Vol] 34.6 G/dL Normal 32.0-36.0 [facility] ([place] Comment on above: Performed By: #### G FR, PSA, HFP, ESR, BMP, ANEU, ADIFF, CBC #### [place] [id number] MCV (RBC) [Entitic vol] 96.8 fL Normal 81.0-100.0 A [facility] ([place] Comment on above: Performed By: #### G FR, PSA, HFP, ESR, BMP, ANEU, ADIFF, CBC #### [place] [id number] Platelet mean volume (Bld) [Entitic vol] 10.0 fL Normal 6.4-10.5 [facility] ([place] Comment on above: Performed By: #### G FR, PSA, HFP, ESR, BMP, ANEU, ADIFF, CBC #### [place] [address] Platelets (Bld) [#/Vol] 203 10 3/mcL Normal 150-450 [facility] ([place] Comment on above: Performed By: #### G FR, PSA, HFP, ESR, BMP, ANEU, ADIFF, CBC #### [place] [address] RBC (Bld) [#/Vol] 4.38 10 6/mcL Low 4.50-6.00 Pending [facility] to [facility] [place] Comment on above: Performed By: #### G FR, PSA, HFP, ESR, BMP, ANEU, ADIFF, CBC #### [place] [address] WBC (Bld) [#/Vol] 5.90 10 3/mcL Normal 4.50-10.80 [facility] to [facility] ([place] Comment on above: Performed By: #### G FR, PSA, HFP, ESR, BMP, ANEU, ADIFF, CBC #### [place] [address] ESRon 02-11-2019 ESR (Bld) [Velocity] 4 mm/h Normal 0-20 [facility] [place] Comment on above: Performed By: #### G FR, PSA, HFP, ESR, BMP, ANEU, ADIFF, CBC #### [place] [address] HFPon 02-11-2019 Bili Indirect 0.4 mg/dL Normal 0.1-10.0 [facility] ([place] Comment on above: Performed By: #### G FR, PSA, HFP, ESR, BMP, ANEU, ADIFF, CBC #### [place] [address] Bili Direct 0.1 mg/dL Normal 0.0-0.4 [facility] ([place] Comment on above: Performed By: #### G FR, PSA, HFP, ESR, BMP, ANEU, ADIFF, CBC #### [facility] [address] [place], [place] [address] Albumin/Globulin [Mass ratio] 1.2 {ratio} Normal 0.9-1.6 [facility] ([place] Comment on above: Performed By: #### G FR, PSA, HFP, ESR, BMP, ANEU, ADIFF, CBC #### [address] [address] ALP [Catalytic activity/Vol] 66 U/L Normal 38-126 [facility] ([place] Comment on above: Performed By: #### G FR, PSA, HFP, ESR, BMP, ANEU, ADIFF, CBC #### [address] [address] Bili Total 0.5 mg/dL Normal 0.2-1.2 [facility] ([place] Comment on above: Performed By: #### G FR, PSA, HFP, ESR, BMP, ANEU, ADIFF, CBC #### [address] [address] Globulin (S) [Mass/Vol] 3.0 G/dL Normal 1.5-3.8 [facility] ([place] Comment on above: Performed By: #### G FR, PSA, HFP, ESR, BMP, ANEU, ADIFF, CBC #### [address] [address] Protein [Mass/Vol] 6.7 G/dL Normal 6.0-8.5 [facility] ([place] Comment on above: Performed By: #### G FR, PSA, HFP, ESR, BMP, ANEU, ADIFF, CBC #### [address] [address] Albumin [Mass/Vol] 3.7 G/dL Normal 3.2-4.8 [facility] ([place] Comment on above: Performed By: #### G FR, PSA, HFP, ESR, BMP, ANEU, ADIFF, CBC #### [address] [address] ALT [Catalytic activity/Vol] 16 U/L Normal 12-55 [facility] ([place] Comment on above: Performed By: #### G FR, PSA, HFP, ESR, BMP, ANEU, ADIFF, CBC #### [facility] [address] [place] [address] AST [Catalytic activity/Vol] 20 U/L Normal 8-34 [facility] ([place] Comment on above: Performed By: #### G FR, PSA, HFP, ESR, BMP, ANEU, ADIFF, CBC #### [facility] [address] [place] [address] PSAon 02-11-2019 Prostate Specific Antigen 2.31 ng/mL Normal 0.02-4.00 [facility] ([place] Comment on above: Performed By: #### G FR, PSA, HFP, ESR, BMP, ANEU, ADIFF, CBC #### [facility] [address] [place] [address] Vital Signs Date Time Vital Sign Value Performing Clinician Davidi miracle 01-20-2022 15:35-0400 Diastolic blood pressure 66 mm[Hg] DR KARY PUCKETT MD [address] 01-20-2022 15:35-0400 Heart rate 46 /min DR KARY PUCKETT MD [facility] 01-20-2022 15:35-0400 Mean blood pressure 83 mm[Hg] DR KARY PUCKETT MD [facility] 01-20-2022 15:35-0400 Respiratory rate 16 /min DR KARY PUCKETT MD [facility] 01-20-2022 15:35-0400 Systolic blood pressure 118 mm[Hg] DR KARY PUCKETT MD [facility] 01-20-2022 12:30-0400 Diastolic blood pressure 70 mm[Hg] DR KARY PUCKETT MD [address] 01-20-2022 12:30-0400 Heart rate 44 /min DR KARY PUCKETT MD [address] [place] [address] 01-20-2022 12:30-0400 Respiratory rate 16 /min DR KARY PUCKETT MD [address] [place] [address] 01-20-2022 12:30-0400 Systolic blood pressure 120 mm[Hg] DR KARY PUCKETT MD [address] [place] [address] 01-20-2022 12:16-0400 Diastolic Blood Pressure NBP [address] KARY PUCKETT MD [address] [place] [address] 01-20-2022 12:16-0400 Heart rate 44 /min DR KARY PUCKETT MD [address] [place] [address] 01-20-2022 12:16-0400 Respiratory rate 16 /min DR KARY PUCKETT MD [address] 01-20-2022 12:16-0400 Systolic Blood Pressure NBP [address] KARY PUCKETT MD [address] 01-20-2022 12:00-0400 Diastolic Blood Pressure NBP [address] KARY PUCKETT MD [address] 01-20-2022 12:00-0400 Systolic Blood Pressure NBP [address] KARY PUCKETT MD [address] 01-20-2022 08:17-0400 Body height [address] KARY PUCKETT MD [address] 01-20-2022 08:17-0400 Body weight 111.[address] KARY PUCKETT MD [facility] 01-20-2022 08:17-0400 Body weight 31.63 kg/m2 DR KARY PUCKETT MD [facility] 01-20-2022 08:11-0400 Body height [address] KARY PUCKETT MD [facility] 01-20-2022 08:11-0400 Body temperature 97.7 [degF] DR KARY PUCKETT MD [facility] 01-20-2022 08:11-0400 Body weight 111.[address] KARY PUCKETT MD [facility] 01-20-2022 08:11-0400 Diastolic Blood Pressure NBP [address] KARY PUCKETT MD [facility] 01-20-2022 08:11-0400 Systolic Blood Pressure NBP [address] KARY PUCKETT MD [facility] Encounters Encounter Date Encounter Type Care Provider Facility Start: 11-29-2024 End: 12-03-2024 ambulatory ANETA VILLALOBOS MD Facility:A Start: 11-07-2024 End: 11-07-[address] Aneta Villalobos MD Work Phone: [facility] Work Phone: Start: 11-07-2024 End: 11-07-[address] Jocelyn Beltre MD -Laboratory, [place] Work Phone: Start: 11-07-2024 End: 11-07-2024 ambulatory Jocelyn Beltre Facility:[facility] Start: 08-24-2024 End: 08-24-[address] Jocelyn Beltre MD -Laboratory, [place] Work Phone: Start: 08-24-2024 End: 08-24-[facility] Start: 06-07-2024 End: 06-07-[address] KARY PUCKETT MD Facility:[facility] Start: 06-07-2024 End: 06-07-[address] KARY PUCKETT MD [facility] Start: 06-06-2024 End: 06-06-2024 ambulatory [facility] Facility:[facility] Start: 03-08-20[address] Ann [facility] Work Phone: [facility] Comment on above: Results Start: 02-29-2024 End: 02-29-2024 ambulatory ANETA VILLALOBOS MD Facility:A Start: 02-16-[address] [facility] Work Phone: [facility] Comment on above: Results Start: 02-03-2024 End: 02-03-[address] [facility] Work Phone: [employer] [facility] Comment on above: Family history of Ma rfan syndrome (Primary Dx); Thoracic aortic aneurysm without rupture, unspecified part (HCC); Marfan's syndrome with aortic dilation Start: 02-03-2024 End: 02-03-2024 Telemedicine consultation with patient Yusuf KABA Work Phone: [email or web address] Start: 01-29-[address] KARY PUCKETT MD F acility:B Start: 01-01-2024 End: 01-01-[address] KARY PUCKETT MD Facility:B Start: 01-01-2024 End: 01-01-[address] KARY PUCKETT MD [facility] Start: 12-14-2023 End: 12-14-2023 ambulatory BENJAMIN CRANE APRN-[facility] Facility:A Start: 02-18-2022 End: 02-18-[address] KARY PUCKETT MD [facility] Start: 01-20-2022 End: 01-20-[address] KARY PUCKETT MD [facility] Start: 01-15-2022 End: 01-15-[address] KARY PUCKETT MD [facility] Start: 01-10-2022 End: 01-10-[address] KARY PUCKETT MD [facility] Start: 01-08-2022 End: 01-08-2022 Patient encounter procedure ANETA VILLALOBOS MD [facility] Procedures Date Procedure Procedure Detail Performing Clinician Start: 01-20-[address] KARY PUCKETT MD Start: 01-15-[address] JAVON PUCKETT MD Comment on above: EF 55-60% Start: 01-08-[address] KARY PUCKETT MD Start: 07-07-2019 Bone density scan Start: 08-03-2016 Structure of left fo ot (body structure) ANETA VILLALOBOS MD Start: 08-03-2014 Structure of left fo ot (body structure) ANETA VILLALOBOS MD Start: 08-03-2009 Structure of right k nee (body structure) ANETA VILLALOBOS MD Arthroscopy ANETA Johnson MD Electrocardiographic monitor and recorder, device (physical object) DR KARY PUCKETT MD Comment on above: Short runs up to 5 b eats of nonsustained ventricular tachycardia noted. Occasional PAC's and PVC's noted. Very short run 3 beats of atrial tachycardia noted. Plan of Treatment Date Care Activity Detail Author Start: 04-03-2024 Influenza vaccination Influenza Vacc ine (#1) [facility] Start: 08-03-2023 Advance Directive Discussion Advance Directive Discussion [facility] Start: 08-03-2023 Behavioral Health Screening Behavioral Health Screening [facility] Start: 04-03-2023 Covid-19 Vaccine () Covid-19 Vaccine () [facility] Start: 03-31-2023 Urine microalbumin profile DTa P,Tdap,Td Vaccine (2 - Td or Tdap) [facility] Start: 02-15-2023 Diabetes Screening Diabetes Screenin g [facility] Start: 06-25-2015 Shingrix Vaccine (2 of 3) [place] grix Vaccine (2 of 3) [facility] Start: 2003 RSV Vaccine (1 - 1-d ose 60+ series) RSV Vaccine (1 - 1-dose 60+ series) [facility] Start: 1961 Anxiety Screening Anxiety Screening [facility] Start: 1961 Depression Screening Depression Scre ening [facility] Immunizations Immunization Date Immunization Notes Care Provider Fa cility 02-24-2024 tetanus toxoid, redu jose diphtheria toxoid, and acellular pertussis vaccine, adsorbed; Translations: [Boostrix (Tdap)] DR KARY PUCKETT MD [facility] Aneta Villalobos MD 06-14-2021 SARS-CoV-2 mRNA (tozinameran) vaccine ANETA VILLALOBOS MD [facility] Comment on above: Result Comment: 2021: [id number] 12-16-2017 pneumococcal conjuga te vaccine, 13 valent ANETA VILLALOBOS MD [facility] 04-30-2015 zoster vaccine, live MARCOS VILLALOBOS MD [facility] 12-02-2013 pneumococcal polysaccharide vaccine, 23 valent ANETA VILLALOBOS MD [facility] 04-28-2013 hepatitis A and hepatitis B vaccine ANETA VILLALOBOS MD [facility] 03-31-2013 adenovirus, type 4 a nd type 7, live, oral ANETA VILLALOBOS MD [facility] 03-31-2013 hepatitis A vaccine, adult dosage ANETA VILLALOBOS MD [facility] 03-31-2013 tetanus toxoid, redu jose diphtheria toxoid, and acellular pertussis vaccine, adsorbed ANETA VILLALOBOS MD [facility] Payers Date Payer Category Payer Self-pay 2015 Private Health Insurance [id number] 2015 Private Health Insurance [facility] [id number] 2008 Medicare MEDICARE MEDICAR E A AND B [id number] 2008-Present [phone] [address] [address] [place] [address] Medicare [id number] 2008 Medicare [id number] [facility] [id number] [id number] 1943 Unknown [id number] [id number] 1943 Unknown [id number] [id number] 1943 Unknown [id number] [id number] 1943 Unknown [id number] [id number] 1943 Unknown [id number] [id number] 1943 Unknown [id number] [id number] Unknown [id number] [id number] Unknown [id number] [id number] Unknown [id number] [id number] Social History Date Type Detail Facility Start: 02-11-2019 Tobacco smoking status Never smoked tobacco (finding) [facility] Sex Assigned At Sex [facility] Tobacco smoking status [facility] Tobacco smoking consumption unknown [facility] Work Phone: Start: 1945 Sex Assigned At Not on file [facility] Start: 02-03-2024 Gender identity Not on file [facility] Start: 02-03-2024 History of Social function [facility] National Score (1-100), lower number is lower risk 83 [facility] Start: 11-10-2024 Sex Male (finding) [facility] Start: 1945 Sex Assigned At Male [facility] Functional Status Date Assessment Result Facility 01-20-2022 Functional Status Ambulating in cohen, Ambulating in room [facility] Mental Status Date Assessment Result Facility 01-20-2022 Mental Status Oriented x 4 [facility] Clinical Notes 01-20-2022 to 03-08-2024 Telephone Encounter - Seth SESAR Goldberg - 03/08/2024 12:46 PM EDTTelephone Encounter - Yusuf Ann [facility] - 03/08/2024 12:46 PM EDTTelephone Encounter - Yuusf Ann [facility] - 02/19/2024 12:02 PM EDT Note Date & Type Note Facility 03-08-2024 Telephone encounter Note Images from the original note were not included. Left voicemail requesting callback. Re-requisition to aortopathy panel was negative or normal. No clear genetic cause identified for his aortic root ectasia/aneurysm. Recommend clinical screening of children and first-degree relatives, but no genetic testing is indicated for children at this time. ---- Yusuf Ann MS, [facility] Licensed Genetic Counselor Email: [email or web address] [facility] 03-08-2024 Miscellaneous Notes Images from the original note were not included. Left voicemail requesting callback. Re-requisition to aortopathy panel was negative or normal. No clear genetic cause identified for his aortic root ectasia/aneurysm. Recommend clinical screening of children and first-degree relatives, but no genetic testing is indicated for children at this time. ---- Yusuf Ann MS, [facility] Licensed Genetic Counselor Email: documented in this encounter [facility] 02-19-2024 Telephone encounter Note Images from the original note were not included. Spoke with patient. Genetic testing (FBN1 sequencing) for Marfan syndrome was negative or normal. He is unlikely to have Marfan syndrome. If his aorta is only mildly dilated this could be normal age-related remodeling and would be consistent with normal genetic testing results. If his aorta is significantly dilated (e.g. >4.5 cm, especially if dilated at the aortic root) we should consider asking the genetic testing lab to reanalyze additional genes associated with hereditary thoracic aortic disease. He understood. I will try calling Dr. Jauregui's office again next week and they will also try to reach out for us to obtain measurements. Otherwise at this time no additional screening or testing is recommended for children or grandchildren. ---- Yusuf Ann MS, [facility] Licensed Genetic Counselor Email: [email or web address] [facility] 02-19-2024 Miscellaneous Notes Images from the original note were not included. Spoke with patient. Genetic testing (FBN1 sequencing) for Marfan syndrome was negative or normal. He is unlikely to have Marfan syndrome. If his aorta is only mildly dilated this could be normal age-related remodeling and would be consistent with normal genetic testing results. If his aorta is significantly dilated (e.g. >4.5 cm, especially if dilated at the aortic root) we should consider asking the genetic testing lab to reanalyze additional genes associated with hereditary thoracic aortic disease. He understood. I will try calling Dr. Jauregui's office again next week and they will also try to reach out for us to obtain measurements. Otherwise at this time no additional screening or testing is recommended for children or grandchildren. ---- Yusuf Ann MS, [facility] Licensed Genetic Counselor Email: [email or web address] Results were negative for the familial FBN1 variant. Also left voicemail with nurse (Diane) with Dr. Jauregui's office to clarify aortic dimensions. ---- Yusuf Ann MS, [facility] Licensed Genetic Counselor Email: [email or web address] documented in this encounter [facility] 02-16-2024 Telephone encounter Note Results were negative for the familial FBN1 variant. Also left voicemail with nurse (Diane) with Dr. Jauregui's office to clarify aortic dimensions. ---- Yusuf Ann MS, [facility] Licensed Genetic Counselor Email: [email or web address] [facility] 02-03-2024 Note HNO ID: [id number] Author: YUSUF ANN LGC Service: ? Author Type: Genetic Counselor Type: Progress Notes Filed: 02/03/2024 18:11 Note Text: GENETIC COUNSELING CONSULTATION Jake Devlin is a 78 year old male with a family history of thoracic aortic disease referred for genetic counseling by Dr. Kary Jauregui. He is present at his appointment by his , Yo. This visit was conducted by telephone. I have communicated my name and active licensure. The patient's identity and physical location were verified at the time of this visit. Either the patient or their legal community engagement representative has been informed of the risks and benefits of -- and alternatives to -- treatment through a remote evaluation and consents to proceed with the evaluation remotely. HISTORY OF PRESENT ILLNESS: Jake Devlin is a pleasant 78 year-old male with a recently identified enlarged thoracic aorta. He and his state that due to the family history of Marfan syndrome, they requested a cardiovascular examination. A chest CT with contrast was done which reportedly showed an enlarged aorta. They do not recall measurements. Mr. Devlin states that his blood pressure is typically in the 135/70-80s. Antihypertensive medication was recommended by Dr. Jauregui but Mr. Devlin declined it at this time. He states that he may be more open to the medication if he does have Marfan syndrome. Mr. Devlin has no significant eye history. He does see an eye doctor once a year. No prior history of ectopia lentis, retinal tear or detachment. The family history is notable for genotype-positive Marfan syndrome in his brother, two nieces, and two grandsons. His brother recently underwent bio Bentall repair at [facility] for a 5.6 cm aortic root aneurysm. His brother is known to carry the familial pathogenic FBN1 variant associated with Marfan syndrome - c.5512G>A (p.[id number]) In terms of family history, he has one son that is biologically related and age 53 that is interested in genetic testing as well. He also has several children who were adopted-in. MEDICAL HISTORY: No past medical history on file. SURGICAL HISTORY: No past surgical history on file. FAMILY HISTORY: A detailed, 4-generation family history was obtained, details are available on request. Significant diagnoses are listed below: Brother (José Devlin) - 83y, Marfan syndrome, +FBN1, s/p BioBentall at 5.6 cm aortic root at [facility] The remainder of the family history is negative for known genetic disease, defects, multiple miscarriages or stillbirths, , developmental delay, intellectual disability, and consanguinity. IMPRESSION: Jake Devlin is a 78 year old male with: - Enlarged thoracic aorta - Family history of genotype-positive Marfan syndrome, pathogenic FBN1 : c.5512G>A ([id number]) - Family history of aortic root aneurysm Mr. Devlin is likely to have Marfan syndrome based on the family history and his reported aortic ectasia. However we did not have records today to be able to confirm the degree of his aortic dilation. Based on the family history he should have genetic testing for his brother's FBN1 variant since it would confirm a diagnosis of Marfan syndrome. Per patient he is scheduled for repeat aortic imaging at the end of this year. We discussed that a positive genetic testing would certainly affect AHA/ACC guideline-based management, including indications for aortic repair (5 cm or >0.3 cm/year growth), more frequent aortic screening if aortic dimensions exceed 4.5 cm, and clear indication for either a beta dona and/or ARB. He did feel more willing to consider medication if his genetic testing is positive. We agreed genetic testing would be benefical here and he would like to proceed. Also discussed other health issues associated with Marfan syndrome. He will continue to see his eye doctor. Also discussed need for genetic testing for his son if his results are positive. We can facilitate as needed in the future. Plan as below. PLAN: - FBN1 sequencing through [facility]. Results are expected in approximately 2-3 weeks after buccal swab is received by the laboratory. - The patient will be contacted by telephone to discuss these results. A follow up genetic counseling visit will be scheduled if indicated. - I will call Dr. Jauregui's office to obtain records and also update when genetic testing is done GENETIC COUNSELING: Thoracic aortic disease is a condition associated with an enlarged aorta. The aorta is the main blood vessel which carries blood from the heart to the rest of the body. Most individuals with an enlarged aorta do not have any symptoms. However, individuals with thoracic aortic disease can be at increased risk for a rupture or tear of the aorta, which can result in significant blood loss. An aortic dissection is a life-threatening emergency. Therefore, regular surveillance (more content not included)... [facility] 02-03-2024 History of Presen t illness Narrative Images from the original note were not included. GENETIC COUNSELING CONSULTATION Jake Devlin is a 78 year old male with a family history of thoracic aortic disease referred for genetic counseling by Dr. Kary Jauregui. He is present at his appointment by his , Yo. This visit was conducted by telephone. I have communicated my name and active licensure. The patient's identity and physical location were verified at the time of this visit. Either the patient or their legal community engagement representative has been informed of the risks and benefits of -- and alternatives to -- treatment through a remote evaluation and consents to proceed with the evaluation remotely. HISTORY OF PRESENT ILLNESS: Jake Devlin is a pleasant 78 year-old male with a recently identified enlarged thoracic aorta. He and his state that due to the family history of Marfan syndrome, they requested a cardiovascular examination. A chest CT with contrast was done which reportedly showed an enlarged aorta. They do not recall measurements. Mr. Devlin states that his blood pressure is typically in the 135/70-80s. Antihypertensive medication was recommended by Dr. Jauregui but Mr. Devlin declined it at this time. He states that he may be more open to the medication if he does have Marfan syndrome. Mr. Devlin has no significant eye history. He does see an eye doctor once a year. No prior history of ectopia lentis, retinal tear or detachment. The family history is notable for genotype-positive Marfan syndrome in his brother, two nieces, and two grandsons. His brother recently underwent bio Bentall repair at [facility] for a 5.6 cm aortic root aneurysm. His brother is known to carry the familial pathogenic FBN1 variant associated with Marfan syndrome - c.5512G>A ([id number]) In terms of family history, he has one son that is biologically related and age 53 that is interested in genetic testing as well. He also has several children who were adopted-in. MEDICAL HISTORY: No past medical history on file. SURGICAL HISTORY: No past surgical history on file. FAMILY HISTORY: A detailed, 4-generation family history was obtained, details are available on request. Significant diagnoses are listed below: Brother (José Devlin) - 83y, Marfan syndrome, +FBN1, s/p BioBentall at 5.6 cm aortic root at [facility] The remainder of the family history is negative for known genetic disease, defects, multiple miscarriages or stillbirths, , developmental delay, intellectual disability, and consanguinity. IMPRESSION: Jake Devlin is a 78 year old male with: - Enlarged thoracic aorta - Family history of genotype-positive Marfan syndrome, pathogenic FBN1 : c.5512G>A ([id number]) - Family history of aortic root aneurysm Mr. Devlin is likely to have Marfan syndrome based on the family history and his reported aortic ectasia. However we did not have records today to be able to confirm the degree of his aortic dilation. Based on the family history he should have genetic testing for his brother's FBN1 variant since it would confirm a diagnosis of Marfan syndrome. Per patient he is scheduled for repeat aortic imaging at the end of this year. We discussed that a positive genetic testing would certainly affect AHA/ACC guideline-based management, including indications for aortic repair (5 cm or >0.3 cm/year growth), more frequent aortic screening if aortic dimensions exceed 4.5 cm, and clear indication for either a beta dona and/or ARB. He did feel more willing to consider medication if his genetic testing is positive. We agreed genetic testing would be benefical here and he would like to proceed. Also discussed other health issues associated with Marfan syndrome. He will continue to see his eye doctor. Also discussed need for genetic testing for his son if his results are positive. We can facilitate as needed in the future. Plan as below. PLAN: - FBN1 sequencing through [facility]. Results are expected in approximately 2-3 weeks after buccal swab is received by the laboratory. - The patient will be contacted by telephone to discuss these results. A follow up genetic counseling visit will be scheduled if indicated. - I will call Dr. Jauregui's office to obtain records and also update when genetic testing is done GENETIC COUNSELING: Thoracic aortic disease is a condition associated with an enlarged aorta. The aorta is the main blood vessel which carries blood from the heart to the rest of the body. Most individuals with an enlarged aorta do not have any symptoms. However, individuals with thoracic aortic disease can be at increased risk for a rupture or tear of the aorta, which can result in significant blood loss. An aortic dissection is a life-threatening emergency. Therefore, regular surveillance of the aorta is important for people with thoracic aortic disease to ensure timely repair of the aorta before a dissection. Up to 1 in 5 individuals with thoracic aortic disease will have a close relative who also has thoracic aortic disease. In many of these families, there is a strong genetic risk factor which is responsible. These genetic risk factors are often passed on in an autosomal dominant pattern. This means that each first-degree relative of someone with a strong genetic risk factor will have a 50/50 chance to also have that genetic risk factor. Not all individuals with a genetic risk factor for thoracic aortic disease go on to develop an enlarged aorta. We reviewed the risks, benefits and limitations of genetic testing. If someone is found to have a genetic risk factor for thoracic aortic disease, we would recommend regular follow-up with a city superintendent. This follow-up should include regular monitoring of the aorta and management of non-genetic risk factors for aortic disease (such as blood pressure). If genetic testing is negative/normal, no further follow-up would be recommended on the basis of the family history. We also reviewed the possible implications of predictive genetic testing for insurability. We reviewed current protections against health and certain employers from discrimination with genetic or family history information. However, there are not currently federal protections against life insurance, long-term care, or disability coverage. Additional protections may exist depending on the state and we discussed that legal protections may change in the future. We reviewed the option of deferring testing until a future date. RESOURCES: [facility]: [facility].[employer] Aortic Hope: [email or web address] -------- The patient was seen for a total of 30 minutes in telephone counseling. This plan is being carried out under oversight of Dr. Taylor Ferrari, Clinical Catalyst Unit Operator. This note is available to the patient through [employer] and will be sent to the referring provider through [employer] or the US Mail as necessary. Yusuf Ann MS, [facility] [place] [place] Licensed, Certified Genetic Counselor [facility] CC: Dr. Taylor Ferrari documented in this encounter [facility] 01-01-2024 Note Exam Date Time Procedure Performing Provider Status 01/01/24 10:57 AM Echocardiogram, Adult - CV Auth (Verified) [facility] 06-20-2022 Hospital Discharge instructions Patient Education 01/20/2022 14:27:57 3- Heart Cath/PCI radial (05/2018) HEART CATHETERIZATION/PCI (radial) Discharge Instructions DIET Drink plenty of fluids for the next 48 hours to help your kidneys flush the heart cath dye out of your system ACTIVITY For the next 48 hours: Do not deep bend the wrist Do not lift, push, or pull anything over 5 pounds Do not use the hand/arm to support your weight when rising from a chair or bed Do not drive For the next 7 days: Do not submerse your procedure site in water Do not swim, wash dishes, or take tub baths You may write, eat, type, and shower WOUND CARE You will go home with a dressing on your site. Remove dressing tomorrow, shower, and apply Band-Aid. Keep a Band-Aid on your procedure site for the next 3-4 days Change the Band-Aid daily or if it gets wet/soiled AFTER YOU GO HOME, CALL YOUR DOCTOR FOR: Any increase in bruising or tenderness from the procedure site Any redness, pus, or other signs of infection at the site A temperature above 100.5 Severe pain at the site DIAL 911 AND RETURN TO THE HOSPITAL FOR: Any bleeding from the procedure site. The site may be bruised or tender, but it should not be bleeding at any time. If your site begins to bleed, hold firm pressure on it and dial 911 to return to the hospital Any increase in swelling at the procedure site. An increase in swelling could mean the area is bleeding under the skin. Hold firm pressure to the site and dial 911 to return to the hospital Document Released: 07/20/2006 Document Revised: 07/06/2013 Document Reviewed: 07/21/2014 ExitCare Patient Information 2015 iHigh. This information is not intended to replace advicegiven to you by your health care provider. Make sure you discuss any questions you have with your health care provider. 01/20/2022 14:27:57 3- Heart Cath/PCI groin (05/2018) HEART CATHETERIZATION/PCI (groin) Discharge Instructions DIET INSTRUCTIONS Drink plenty of fluids for the next 48 hours to help your kidneys flush the heart cath dye out of your system ACTIVITIES May go up and down stairs CAREFULLY Do not drive car FOR 24 HOURS No heavy lifting GREATER THAN 5 POUNDS or pushing or straining FOR 2 DAYS Someone must stay with you at home after the procedure until the morning. BATHING/SHOWERING May tub bathe in 1 week May shower tomorrow WOUND CARE You will go home with a small dressing over your heart cath site. Remove the dressing in the morning and then leave open to air. Some degree of bruising and tenderness is normal around the heart cath site. It will take a while for any bruising to completely resolve. Keep your site clean and dry. You need to report the following to your city superintendent: Any draining or oozing from the site Any swelling at the site Any increased pain or tenderness at the site Any numbness in your leg where the procedure was done Any signs of infection IMPORTANT! CALL 911 FOR ANY BLEEDING OR SWELLING AT THE PROCEDURE SITE If there is any large amount of bleeding, you or someone else need to apply direct pressure to the site (just like the nurse did in the heart lab after your procedure). It is very important that you hold constant pressure. Do not release the pressure to check if the bleeding has stopped. You then need to be transported to the nearest emergency room. WATCH FOR SIGNS OF INFECTION (Usually appears 36-48 hours after surgery) A temperature above 100.5 Redness or swelling Increased pain Foul odor or drainage If you have any questions, please call your doctor at the number listed on your follow up instructions. Follow all instructions given to you by your physician Document Released: 07/20/2006 Document Revised: 07/06/2013 Document Reviewed: 07/21/2014 [facility] Patient Information 2015 iHigh. This information is not intended to replace advicegiven to you by your health care provider. Make sure you discuss any questions you have with your health care provider. 01/20/2022 14:24:45 Moderate Conscious Sedation, Adult, Care After Moderate Conscious Sedation, Adult, Care After These instructions provide you with information about caring for yourself after your procedure. Your health care provider may also give you more specific instructions. Your treatment has been plannedaccording to current medical practices, but problems sometimes occur. Call your health care provider if you have any problems or questions after your procedure. What can I expect after the procedure? After your procedure, it is common: To feel sleepy for several hours. To feel clumsy and have poor balance for several hours. To have poor judgment for several hours. To vomit if you eat too soon. Follow these instructions at home: For at least 24 hours after the procedure: Do not: ?Participate in activities where you could fall or become injured. ?Drive. ?Use heavy machinery. ?Drink alcohol. ?Take sleeping pills or medicines that cause drowsiness. ?Make important decisions or sign legal documents. ?Take care of children on your own. Rest. Eating and drinking Follow the diet recommended by your health care provider. If you vomit: ?Drink water, juice, or soup when you can drink without vomiting. ?Make sure you have little or no nausea before eating solid foods. General instructions Have a responsible adult stay with you until you are awake and alert. Take [id number] and prescription medicines only as told by your health care provider. If you smoke, do not smoke without supervision. Keep all follow-up visits as told by your health care provider. This is important. Contact a health care provider if: You keep feeling nauseous or you keep vomiting. You feel light-headed. You develop a rash. You have a fever. Get help right away if: You have trouble breathing. This information is not intended to replace advice given to you by your health care provider. Make sure you discuss any questions you have with your health care provider. Document Released: 05/10/2014 Document Revised: 07/02/2018 Document Reviewed: 11/08/2016 [employer] Patient Education 2020 Click4Care. Follow Up Care 01/10/2022 11:36:36 With:KARY PUCKETT MD Address: [address] [place] [address] [address] [place] [address]- [phone] When:02/18/2022 10:00:00 Comments:THE APPOINTMENT SCHEDULED ON 01/31 HAS BEEN CANCELLED. [facility] Evaluation + Plan note Future Appointments Appointment Date:06/20/2022 09:15:00 AM Scheduled Provider:ANETA [facility]OS [facility] Type:PC OV Follow Up [facility] Evaluation + Plan note Future Appointments Appointment Date:01/15/2022 02:00:00 PM Scheduled Provider: Location:[facility] Appointment Type:CV Procedure - AOH Echo Appointment Date:01/20/2022 10:00:00 AM Scheduled Provider: Location:[facility] Lab Appointment Type:CV Procedure - Heart Lab/Hybrid OR Appointment Date:01/31/2022 10:30:00 AM Scheduled Provider: Location:[facility] Appointment Type:CV OV Appointment Date:06/20/2022 09:15:00 AM Scheduled Provider:ANETA VILLALOBOS MD [facility] Type:PC OV Follow Up [facility] Evaluation + Plan note Future Appointments Appointment Date:01/20/2022 10:00:00 AM Scheduled Provider: Location:[facility] Lab Appointment Type:CV Procedure - Heart Lab/Hybrid OR Appointment Date:01/31/2022 10:30:00 AM Scheduled Provider: Location:[facility] Appointment Type:CV OV Appointment Date:06/20/2022 09:15:00 AM Scheduled Provider:ANETA VILLALOBOS MD Location:[facility] Appointment Type:PC OV Follow Up [facility] Evaluation + Plan note Future Appointments Appointment Date:02/18/2022 10:00:00 AM Scheduled Provider: Location:[facility] Appointment Type:CV OV Appointment Date:06/20/2022 09:15:00 AM Scheduled Provider:ANETA VILLALOBOS MD Location:[facility] Appointment Type:PC OV Follow Up [facility] Evaluation + Plan note Future Appointments Appointment Date:03/10/2022 01:00:00 PM Scheduled Provider: Location:[facility] Appointment Type:[facility] - Carotid US/Doppler Complete Appointment Date:03/10/2022 02:00:00 PM Scheduled Provider: Location:[facility] Appointment Type:CT Chest w/o Contrast Appointment Date:06/20/2022 09:15:00 AM Scheduled Provider:ANETA VILLALOBOS MD Location:[facility] Appointment Type:PC OV Follow Up Future Scheduled Tests Laboratory* Lipid Profile 08/21/22 Radiology* CT Thorax w/o Contrast 03/10/22 [facility] Evaluation + Plan note Future Appointments Appointment Date:02/26/2024 03:00:00 PM Scheduled Provider:ANETA VILLALOBOS MD [facility] Appointment Type:PC Wellness Medicare Future Scheduled Tests Laboratory* Lipid Profile 06/23/24 * N-Terminal proBNP 06/23/24 [facility] Evaluation + Plan note Future Appointments Appointment Date:11/29/2024 09:15:00 AM Scheduled Provider:ANETA VILLALOBOS MD Location:[facility] Appointment Type:PC OV Follow Up Future Scheduled Tests Laboratory* N-Terminal proBNP 05/30/24 [facility] note* Diagnosis Family history of Marfan syndrome- Primary Thoracic aortic aneurysm without rupture, unspecified part (HCC) Marfan's syndrome with aortic dilation Marfan's syndrome [facility] noteNo assessment information availableWSt. [facility] Work Phone: Hospital course Narrative No data available for this section [facility] Hospital Discharge instructions No data available for this section [facility] Progress note No data available for this section [facility] Reason for referral (narrative)No reason for referral information availableWSt. Elizabeth Hospital Work Phone: Summary Purpose Family History No Family History Records FoundNo Family History Records FoundNo Family History Records Found No data available for this section No Family History Records FoundNo Family History Records Found No data available for this section No data available for this section No Family History Records FoundNo Family History Records FoundNo Family History Records Found Advance Directives No Advanced Directives Records FoundNo Advanced Directives Records FoundNo Advanced Directives Records FoundNo Advanced Directives Records FoundNo Advanced Directives Records FoundNo Advanced Directives Records FoundNo Advanced Directives Records FoundNo Advanced Directives Records Found Chief Complaint and Reason for Visit Chief Complaint Admit Date PAIN- COPY PCP August 24, 2024 2 :46pm PAIN- COPY PCP November 07, 2024 9:24 am Additional Source Comments (unrecognized sect ion and content) No Status Records FoundNo Status Records FoundNo Status Records FoundNo Status Records FoundNo Status Records FoundNo Status Records FoundNo Status Records FoundNo Status Records Found INFORMATION SOURCE (unrecogn ized section and content) DATE CREATED AUTHOR 02/11/2019 [facility] ([place]) DATE CREATED AUTHOR AUTHOR'S ORGANIZ ATION 05/14/2020 [facility]man [place] DATE CREATED AUTHOR AUTHOR'S ORGANIZ ATION 06/18/2020 [facility] DATE CREATED AUTHOR AUTHOR'S ORGANIZ ATION 03/01/2024 [facility] ([place]) DATE CREATED AUTHOR AUTHOR'S ORGANIZ ATION 03/10/2024 [facility] DATE CREATED AUTHOR AUTHOR'S ORGANIZ ATION 07/01/2024 [facility] DATE CREATED AUTHOR AUTHOR'S ORGANIZ ATION 11/12/2024 [facility] DATE CREATED AUTHOR AUTHOR'S ORGANIZ ATION 12/08/2024 [facility] Care Team (unrecognized sect ion and content) Team Status: Active Member Role Status Dates Dr. Aneta Villalobos MD Primary Care Provider Active Team Status: Inactive Member Role Status Dates Dr. Aneta Villalobos MD Primary Care Provider Active Start: August 24, 2024 End: August 24, 2024 Dr. Jocelyn Beltre MD Attending Provider Active Start: August 24, 2024 End: August 24, 2024 Dr. Jocelyn Beltre MD Referring Provider Active Start: August 24, 2024 End: August 24, 2024 Team Status: Inactive Member Role Status Dates Dr. Aneta Villalobos MD Primary Care Provider Active Start: November 07, 2024 End: November 07, 2024 Dr. Jocelyn Beltre MD Attending Provider Active Start: November 07, 2024 End: November 07, 2024 Dr. Jocelyn Beltre MD Referring Provider Active Start: November 07, 2024 End: November 07, 2024 Care Team (unrecognized sect ion and content) Care Team Personnel Name: ANETA VILLALOBOS MD Position: P4 Physician - Primary Care Med Service: Active Provider Member Role: Primary Care Physician Address: Address: [address] [place] [address] [address] [facility] [address] Care Team Related Persons Name: DEVLIN YO Name: CLAUS YO Villatoro Address: Home [address] [place] [address] Source Comments (unrecognize d section and content) In the event this informatio n is protected by the Federal Confidentiality of Alcohol and Drug Abuse Patient Records regulations: The Federal rules restrict any use of the information to criminally investigate or prosecute any alcohol or drug abuse patient.[facility] the event this information is protected by the Federal Confidentiality of Alcohol and Drug Abuse Patient Records regulations: The Federal rules restrict any use of the information to criminally investigate or prosecute any alcohol or drug abuse patient.[facility] the event this information is protected by the Federal Confidentiality of Alcohol and Drug Abuse Patient Records regulations: The Federal rules restrict any use of the information to criminally investigate or prosecute any alcohol or drug abuse patient.[facility] Reason for Visit (unrecogniz ed section and content) Reason Comments Consult Reason Comments Results Goals (unrecognized section and content) Goals may be documented in a n alternate section FOR RECORDS PERTAINING TO PATIENTS WHO ARE OR HAVE BEEN ENROLLED IN A CHEMICAL DEPENDENCY/SUBSTANCEABUSE PROGRAM, SOME INFORMATION MAY BE OMITTED. This clinical summary was aggregated from multiple sources. Caution should be exercised in using it in the provision of clinical care. This summary normalizes information from multiple sources, and as a consequence, information in this document may materially change the coding, format and clinical context of patient data. In addition, data may be omitted in some cases. CLINICAL DECISIONS SHOULD BE BASED ON THE PRIMARY CLINICAL RECORDS. [employer] [facility]. provides no warranty or guarantee of the accuracy or completeness of information in this document.
[2025-01-13 10:19] LABS: Absolute Lymphocyte Count 1.37 X10^3/uL (0.83-4.51); Absolute Neutrophil Count 3.8 X10^3/uL (2.0-7.7); Basophil# 0.03 X10^3/uL; Basophil% 0.5 % (0-1); Eosinophil# 0.22 X10^3/uL; Eosinophils% 3.7 % (0-5); Hematocrit 40.6 % (40-54); Hemoglobin 13.4 g/dL (13.0-16.5); Lymphocyte # 1.37 X10^3/ul (0.83-4.51); Lymphocyte % 22.9 % (19-41); Mean Corpuscular Hgb 33.4 pg (27.0-32.0); Mean Corpuscular Volume 101.2 fL (80-94); Mean Platelet Vol. 11.7 fl (6.2-12.0); Monocyte# 0.54 X10^3/uL; NRBC Flagged by Analyzer 0 % (0-5); Neutrophil # 3.79 X10^3/uL (2.7-7.7); Neutrophil % 63.4 % (47-70); Platelet Count 191 K/mm3 (150-450); RBC Distribution Width CV 13.8 % (11.6-14.6); Red Blood Count 4.01 M/mm3 (4.6-6.2)
[2025-01-13 14:45] LABS: ALB/GLOB Ratio 1.6 RATIO (0.9-2.4); AST(SGOT) 28 U/L (<=37); Alanine Aminotransfer ALT/SGPT 11 U/L (<=46); Albumin, Serum 3.9 g/dL (3.4-4.8); Alkaline Phosphatase 71 U/L (40-129); Anion Gap 12 (5-15); BUN 26 mg/dL (4-19); BUN/Creat Ratio 24.7 RATIO (10-20); Calcium,Total 8.9 mg/dL (7.6-11.0); Carbon Dioxide 19.1 mmol/L (21.0-32.0); Chloride 108 mmol/L (98-108); Creatinine, Serum 1.05 mg/dL (0.70-1.20); EST Glomerular Filtration Rate 71 (>60); Globulin 2.5 g/dL (2.2-4.2); Glucose 90 mg/dL (70-99); Potassium 4.4 mmol/L (3.3-5.1); Protein, Total 6.4 g/dL (5.9-8.4); Sodium Level 139 mmol/L (133-145); Total Bilirubin 0.45 mg/dL (0.00-1.30)
== END | disposition home or self-care (01) ==
LOC: MTLAB 08:10
PROVIDERS: Referring Provider Internal Medicine Rheumatology; Visit Provider Internal Medicine Rheumatology
DX: M06.4 Inflammatory polyarthropathy (principal); Z79.899 Other long term (current) drug therapy
CPT/HCPCS: 36415; 80053; 85025

== ENCOUNTER → 2025-04-06 | Outpatient (CLI) | payer MEDICARE, OTHER, SELFPAY ==
[2025-04-06 12:41] LABS: Hematocrit 39.2 % (40-54); Hemoglobin 13.5 g/dL (13.0-16.5); Immature Granulocytes Count 0.020 X10^3/uL (0.0-0.0); Mean Corp Hgb Conc 34.4 g/dL (32-36); Mean Corpuscular Volume 98.5 fL (80-94); Mean Platelet Vol. 11.5 fl (6.2-12.0); NRBC Flagged by Analyzer 0 % (0-5); Platelet Count 198 K/mm3 (150-450); RBC Distribution Width CV 13.6 % (11.6-14.6); RBC Distribution Width SD 49.5 fl (35.1-43.9); Red Blood Count 3.98 M/mm3 (4.6-6.2); White Blood Count 5.5 K/mm3 (4.4-11.0)
[2025-04-06 13:04] LABS: AST(SGOT) 23 U/L (<=37); Alanine Aminotransfer ALT/SGPT 7 U/L (<=46); Albumin, Serum 4.0 g/dL (3.4-4.8); Alkaline Phosphatase 73 U/L (40-129); Anion Gap 9 (5-15); BUN 30 mg/dL (4-19); BUN/Creat Ratio 31.4 RATIO (10-20); Calcium,Total 9.0 mg/dL (7.6-11.0); Carbon Dioxide 21.5 mmol/L (21.0-32.0); Chloride 109 mmol/L (98-108); Globulin 2.5 g/dL (2.2-4.2); Glucose 99 mg/dL (70-99); Potassium 4.5 mmol/L (3.3-5.1)
== END | disposition home or self-care (01) ==
LOC: MTLAB 09:21
PROVIDERS: Referring Provider Internal Medicine Rheumatology; Visit Provider Internal Medicine Rheumatology
DX: M06.4 Inflammatory polyarthropathy (principal); E78.5 Hyperlipidemia, unspecified; Z79.899 Other long term (current) drug therapy
CPT/HCPCS: 36415; 80053; 85025